=== PATIENT | female | born 2000 | race Caucasian/White ===

== ENCOUNTER 2019-02-13 11:08 | Emergency (ER) | payer OTHER ==
[2019-02-13 11:22] VITALS: BP 118/58
--- NOTE | 2019-02-13 12:14 | ER Document Report ---
HPI - HPI Patient complains to provider of: Right-sided back pain Time Seen by Provider: 02/13/19 11:38 Onset: Yesterday Onset/Duration: Sudden, Persistent Severity: Moderate Pain Level: 3 Context: Patient presents to the emergency department with complaints of right-sided neck pain. Patient reports she woke up yesterday morning with right-sided back pain. Reports it radiates down her right leg and up her right back. Pt denies pain with void. Denies urinary frequency. Denies history of kidney stones. She went to [facility] and was treated with muscle relaxer and naproxen. Patient reports she took medications and woke up feeling worse this morning. Denies urinary or bowel incontinence or retention. Denies trauma. Reports she just woke up. Reports she did not hurt her back at work. 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 Denies twisting her back. Reports she has family history of bulging disc. She denies numbness or tingling. Denies IV drug use or steroid use. Associated Symptoms: None Exacerbated by: Movement Relieved by: Denies Similar symptoms previously: Yes Recently seen / treated by doctor: Yes - CONSTITUTIONAL Constitutional: DENIES: Fever, Chills - EENT EENT: DENIES: Sore Throat, Ear Pain, Eye problems - NEURO Neurology: DENIES: Headache, Weakness, Vision blurred, Dizzinesss / Vertigo - CARDIOVASCULAR Cardiovascular: DENIES: Chest pain - RESPIRATORY Respiratory: DENIES: Trouble Breathing, Coughing - GASTROINTESTINAL Gastrointestinal: DENIES: Abdominal Pain, Black / Bloody Stools - URINARY Urinary: DENIES: Dysuria, Urgency, Frequency - REPRODUCTIVE Reproductive: DENIES: : - MUSCULOSKELETAL Musculoskeletal: DENIES: Extremity pain Past Medical History - General Information source: Patient Last Menstrual Period: just finished - Social History Smoking Status: Current Every Day Smoker Cigarette use (# per day): No Frequency of alcohol use: None Drug Abuse: None 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 IN LAST 30 DAYS: No - HEENT HEENT: Atraumatic, Normocephalic - NECK Neck: Normal Inspection, Supple. negative: Lymphadenopathy-Left, Lymphadenopathy-Right - RESPIRATORY Respiratory: Breath Sounds Normal, No Respiratory Distress - GI/ABDOMEN Gastrointestinal: Abdomen Soft, Abdomen Non-Tender - BACK Back: Normal Inspection - Complains of both low right-sided back pain. No v ertebral tenderness good distal movement sensation no erythema no swelling no warmth no weakness - MUSCULOSKELETAL/EXTREMETIES Musculoskeletal/Extremeties: [place] FROM - NEURO Level of Consciousness: Awake, Alert, Appropriate Motor/Sensory: No Motor Deficit - DERM Integumentary: Warm, Dry Adult Front & Back Diagram: 1 - Patient reports area tender to palpate Course - Re-evaluation Re-evalutation: 02/13/19 14:04 Pt denies vertebral tenderness, appears to be muscular. She was instructed to continue to take her medications that [place] She was also instructed follow-up with primary care provider within 1 week. She verbalized understanding to all instructions. Low suspicion for any meningitis, fracture, expanding/ruptured AAA, cauda equina syndrome, epidural mass lesion/abscess, herniated disc causing severe spinal stenosis, or other systemic infection at this time. Patient is aware that this condition can change from initial presentation and that she needs monitor symptoms closely for any acute changes. Dictation of this chart was performed using voice recognition software; therefore, there may be some unintended grammatical errors. - Vital Signs Vital signs: Temp Pulse Resp BP Pulse Ox 99.6 F 69 16 118/58 L 99 02/13/19 11:21 02/13/19 11:21 02/13/19 11:21 02/13/19 11:21 02/13/19 11:21 Discharge - Discharge Clinical Impression: right side low back pain Condition: Stable Disposition: HOME, SELF-CARE Instructions: Ice Packs ([facility]), Low Back Pain ([facility]) Additional Instructions: *You have been evaluated for right side low back pain *Take medication as prescribed *Rest/Ice packs as directed *Follow up with a primary care provider within one week for recheck *Return to ED for worsening condition, changes, needs
== END 2019-02-13 12:15 | disposition home or self-care (01) ==
LOC: ER 11:08
DX: M54.5 Low back pain (principal); M54.2 Cervicalgia; F17.200 Nicotine dependence, unspecified, uncomplicated
CPT/HCPCS: 99283

== ENCOUNTER 2019-02-15 19:21 | Inpatient (IN) | payer OTHER ==
[2019-02-15] MEDS ORDERED: NORMAL SALINE 1000 ML 1,000 ML IV ONE (19:48)
[2019-02-15 20:16] LABS: HEMATOCRIT 37.2 % (36.0-47.0); HEMOGLOBIN 12.4 g/dL (12.0-15.5); MEAN CORPUSCULAR HEMOGLOBIN 27.5 pg (27.0-33.4); MEAN CORPUSCULAR HGB CONC 33.3 g/dL (32.0-36.0); MEAN CORPUSCULAR VOLUME 83 fl (80-97); PLATELET COUNT 192 10^3/uL (150-450); RED BLOOD COUNT 4.51 10^6/uL (3.72-5.28); RED CELL DISTRIBUTION WIDTH 13.6 % (11.5-14.0); WHITE BLOOD COUNT 28.8 10^3/uL (4.0-10.5)
--- NOTE | 2019-02-15 20:22 | ER Document Report ---
Entered by NATASHA BUSTAMANTE SCRIBE [birth year] Acting as scribe for:ZHENG BEE MD ED General - General Chief Complaint: Back Pain Stated Complaint: RIGHT FLANK PAIN Time Seen by Provider: 02/15/19 19:31 Notes: Patient is a 18-year-old female arriving via EMS presenting to the emergency department complaining of back pain. Patient states that she woke up this morning at about 730 due to severe lower back pain. Patient states that she woke up on 02/10 and she was experiencing the same severe lower back pain, that woke her up from her sleep. Patient states that she has also been experiencing severe rib pain. Patient states that throughout the day on the it was intermittent, but that it got constant that night. Patient states that she went to [facility] on 02/11 when the pain stayed constant. Patient states that she was given the Naprosyn and Robaxin, and that she had a urine test done. Patient states that the pain radiates down her butt and into her thighs bilaterally. Patient denies saying anything exacerbates that, or having any abdominal pain. Patient states that her last menstrual period was on 02/09. Discovered to be around she EMS gave the patient 8 mg of Zofran, and 120 mg of fentanyl in route to the emergency department. TRAVEL OUTSIDE OF THE [place] IN LAST 30 DAYS: No - Related Data Allergies/Adverse Reactions: morphine Adverse Reaction (Verified 02/15/19 20:57) Past Medical History - General Information source: Patient - Social History Smoking Status: Never Smoker Cigarette use (# per day): No Chew tobacco use (# tins/day): No Frequency of alcohol use: None Drug Abuse: None Family History: Other - Bulging disc Review of Systems - Review of Systems Constitutional: No symptoms reported EENT: No symptoms reported Cardiovascular: No symptoms reported Respiratory: No symptoms reported Gastrointestinal: No symptoms reported. denies: Abdominal pain Genitourinary: See HPI, Flank pain Female Genitourinary: No symptoms reported Musculoskeletal: See HPI, Back pain Skin: No symptoms reported Hematologic/Lymphatic: No symptoms reported Neurological/Psychological: No symptoms reported -: Yes All other systems reviewed and negative Physical Exam - Vital signs Vitals: Temp 99.2 F 02/15/19 19:24 - Notes Notes: Physical Exam: General: Alert, appears well. HEENT: Normocephalic. Atraumatic. PERRL. Extraocular movements intact. Oropharynx clear. Neck: CVA percussion tenderness. Supple. Respiratory: No respiratory distress. Clear and equal breath sounds bilaterally. Cardiovascular: Regular rate and rhythm. Abdominal: Right lower quadrant mildly tender to palpation. Right upper quadra nt tenderness to palpation. Right tenderness to palpation. Right anterior ribs tender to palpation no distension. Normal Bowel Sounds. Back: Right lumbar tenderness to palpation bilaterally. Right flank musculature tenderness to palpation. No deformity or step off. Extremities: Moves all four extremities. Upper extremities: Normal inspection. Normal ROM. Lower extremities: Normal inspection. No edema. Normal ROM. Neurological: Normal cognition. AAOx4. Normal speech. Psychological: Normal affect. Normal Mood. Skin: Warm. Dry. Normal color. Course - Vital Signs Vital signs: Temp Pulse Resp BP Pulse Ox 99.2 F 21 95/62 L 100 02/15/19 19:24 02/15/19 21:10 02/15/19 21:10 02/15/19 21:10 - Laboratory Result Diagrams: 02/15/19 19:42 02/15/19 19:42 Laboratory results interpreted by me: 02/15/19 02/15/19 02/15/19 19:42 19:42 19:42 WBC 28.8 H Band Neutrophils % 14 H Lymphocytes % (Manual) 8 L Abs Neuts (Manual) 24.2 H Abs Monocytes (Manual) 2.3 H ESR Sodium 135.7 L Potassium 3.4 L Lactic Acid 3.1 H Direct Bilirubin 0.5 H C-Reactive Protein Urine Protein Urine Blood Urine Nitrite Urine Bilirubin Urine Urobilinogen Ur Leukocyte Esterase 02/15/19 02/15/19 02/15/19 19:42 19:42 20:24 WBC Band Neutrophils % Lymphocytes % (Manual) Abs Neuts (Manual) Abs Monocytes (Manual) ESR 48 H Sodium Potassium Lactic Acid Direct Bilirubin C-Reactive Protein 262.7 H Urine Protein 100 H Urine Blood SMALL H Urine Nitrite POSITIVE H Urine Bilirubin MODERATE H Urine Urobilinogen 4.0 H Ur Leukocyte Esterase MODERATE H - Diagnostic Test Radiology reviewed: Image reviewed, Reports reviewed - CT scan abdomen pelvis without contrast shows perinephric stranding and periureteral stranding of the right kidney. There are no stones and there is no obstruction. - Consults Dr. Miller Time consulted: 21:32 Consulted provider: will come to ER Discharge - Discharge Clinical Impression: Pyelonephritis of right kidney Leukocytosis Qualifiers: Leukocytosis type: bandemia Qualified Code(s): D72.825 - Bandemia Sepsis Qualifiers: Sepsis type: sepsis due to unspecified organism Qualified Code(s): A41.9 - Sepsis, unspecified organism Condition: Good Disposition: ADMITTED INPATIENT Admitting Provider: Paul (Hospitalist) Unit Admitted: Telemetry Scribe Attestation: 02/15/19 22:57 I personally performed the services described in the documentation, reviewed and edited the documentation which was dictated to the scribe in my presence, and it accurately records my words and actions. I personally performed the services described in the documentation, reviewed and edited the documentation which was dictated to the scribe in my presence, and it accurately records my words and actions.
[2019-02-15] MEDS ORDERED: KETOROLAC TROMETHAMINE INJ/PF 30 MG/1 ML SDV IV ONE (20:29)
[2019-02-15 20:38] LABS: ABSOLUTE LYMPHOCYTES# (MANUAL) 2.3 10^3/uL (0.5-4.7); ABSOLUTE MONOCYTES # (MANUAL) 2.3 10^3/uL (0.1-1.4); BASOPHILS % (MANUAL) 0 % (0-2); EOSINOPHILS % (MANUAL) 0 % (0-6); LYMPHOCYTES % (MANUAL) 8 % (13-45); MONOCYTES % (MANUAL) 8 % (3-13); SEGMENTED NEUTROPHILS % (MAN) 70 % (42-78); TOTAL CELLS COUNTED 100
[2019-02-15 20:39] LABS: ALANINE AMINOTRANSFERASE 21 U/L (5-35); ALBUMIN 3.7 g/dL (3.7-5.6); ALKALINE PHOSPHATASE 107 U/L (50-135); ANION GAP 13 (5-19); ASPARTATE AMINO TRANSFERASE 22 U/L (5-30); BILIRUBIN,DIRECT 0.5 mg/dL (0.0-0.4); BILIRUBIN,TOTAL 0.9 mg/dL (0.2-1.3); BLOOD UREA NITROGEN 13 mg/dL (7-20); CALCIUM 9.1 mg/dL (8.4-10.2); CARBON DIOXIDE 22 mmol/L (22-30); CHLORIDE 101 mmol/L (98-107); GLUCOSE 110 mg/dL (75-110); PLATELET COMMENT ADEQUATE; POTASSIUM 3.4 mmol/L (3.6-5.0); SODIUM 135.7 mmol/L (137-145); TOTAL PROTEIN 6.6 g/dL (6.3-8.2); TOXIC GRANULATION SLIGHT; TOXIC VACUOLATION PRESENT
[2019-02-15 20:40] LABS: BAND NEUTROPHILS % (MANUAL) 14 % (3-5)
[2019-02-15 20:58] LABS: APPEARANCE,URINE CLOUDY; BILIRUBIN,URINE MODERATE (NEGATIVE); COLOR,URINE AMBER; GLUCOSE, URINE NEGATIVE (NEGATIVE); KETONES,URINE NEGATIVE (NEGATIVE); LEUKOCYTE ESTERASE,URINE MODERATE (NEGATIVE); NITRITE,URINE POSITIVE (NEGATIVE); PROTEIN,URINE 100 mg/dL (NEGATIVE); URINE SPECIFIC GRAVITY 1.025
[2019-02-15] MEDS ORDERED: LEVOFLOXACIN 750 MG/D5W RTU 750 MG/150 ML RTUPB IV ONE (21:10)
[2019-02-15] MEDS ORDERED: RINGERS SOLUTION,LACTATED 1,000 ML IV ONE (21:11)
[2019-02-15 21:32] LABS: C-REACTIVE PROTEIN 262.7 mg/L (<10.0)
--- NOTE | 2019-02-15 22:15 | RADIOLOGY REPORT (SQ) ---
CT ABDOMEN PELVIS WITHOUT IV CONTRAST EXAM DATE: 02/15/2019 9:15 PM CDT HISTORY: Right flank pain. Hematuria. COMPARISON: None. TECHNIQUE: CT scan of the abdomen and pelvis was performed without IV contrast. This exam was performed according to our departmental dose-optimization program, which includes automated exposure control, adjustment of the mA and/or kV according to patient size and/or use of iterative reconstruction technique. FINDINGS: The lung bases are clear. No pleural or pericardial effusions. There is no hiatal hernia. The liver, main, pancreas, gallbladder, and adrenal glands are normal. No hydronephrosis or urinary stones are seen. There is mild right perinephric and periureteric stranding. Limited evaluation for pyelonephritis without IV contrast. Query small left ovarian cyst. The appendix is not well visualized. The proximal colon is fluid-filled suggesting a diarrheal illness. No evidence of diverticulitis or small bowel obstruction. No intraperitoneal free fluid or free air is seen. The aorta is normal caliber. No acute bony findings are seen. No pathologic body wall hernia is seen. IMPRESSION: 1. Limited evaluation for pyelonephritis without IV contrast. Mild right perinephric and periureteric stranding. Correlate with urinalysis. 2. No hydronephrosis or urinary stones. 3. Findings possibly representing a diarrheal illness.
[2019-02-15] MEDS ORDERED: MAG HYDROX/AL HYDROX/SIMETH SUSP 30 ML UDCUP PO PRN (22:17)
[2019-02-15] MEDS: NORMAL SALINE 1000 ML 1,000 ML IV PRN (23:20)
[2019-02-16] MEDS ORDERED: DEXTROSE 5%-WATER 250 ML with NOREPINEPHRINE BITARTRATE 4 MG IV PRN ×2 (01:40)
[2019-02-16] MEDS ORDERED: VANCOMYCIN HCL 0 MG in DEXTROSE 5%-WATER 250 ML IV NR (01:45)
[2019-02-16] MEDS ORDERED: VANCOMYCIN HCL INJ 1000 MG VIAL IV PRN (02:03)
[2019-02-16] MEDS ORDERED: NOREPINEPHRINE BITARTRATE INJ/PF 4 MG/4 ML SDV IV ONE (02:03)
[2019-02-16] MEDS ORDERED: VANCOMYCIN HCL 1,500 MG in DEXTROSE 5%-WATER 250 ML IV ONE (02:30)
[2019-02-16] MEDS: POTASSI CL 20 MEQ/50 ML RIDER 20 MEQ/50 ML RTUPB IV SCH ×2 (02:57→04:40)
[2019-02-16] MEDS: NORMAL SALINE 1000 ML 1,000 ML IV PRN ×3 (02:57→23:41)
[2019-02-16 04:04] LABS: HEMATOCRIT 33.2 % (36.0-47.0); MEAN CORPUSCULAR HEMOGLOBIN 27.8 pg (27.0-33.4); MEAN CORPUSCULAR HGB CONC 33.2 g/dL (32.0-36.0); MEAN CORPUSCULAR VOLUME 84 fl (80-97); PLATELET COUNT 165 10^3/uL (150-450); RED BLOOD COUNT 3.97 10^6/uL (3.72-5.28); RED CELL DISTRIBUTION WIDTH 13.7 % (11.5-14.0); WHITE BLOOD COUNT 22.8 10^3/uL (4.0-10.5)
[2019-02-16 04:20] LABS: ANION GAP 9 (5-19); BLOOD UREA NITROGEN 12 mg/dL (7-20); CALCIUM 7.6 mg/dL (8.4-10.2); CARBON DIOXIDE 21 mmol/L (22-30); CHLORIDE 108 mmol/L (98-107); GLUCOSE 142 mg/dL (75-110); POTASSIUM 3.6 mmol/L (3.6-5.0); SODIUM 137.8 mmol/L (137-145)
[2019-02-16 04:28] LABS: ABSOLUTE LYMPHOCYTES# (MANUAL) 1.6 10^3/uL (0.5-4.7); ABSOLUTE MONOCYTES # (MANUAL) 0.2 10^3/uL (0.1-1.4); BAND NEUTROPHILS % (MANUAL) 10 % (3-5); BASOPHILS % (MANUAL) 0 % (0-2); EOSINOPHILS % (MANUAL) 0 % (0-6); LYMPHOCYTES % (MANUAL) 7 % (13-45); MONOCYTES % (MANUAL) 1 % (3-13); SEGMENTED NEUTROPHILS % (MAN) 82 % (42-78); TOTAL CELLS COUNTED 100
[2019-02-16 04:29] LABS: RBC MORPHOLOGY COMMENT NORMO-CYTIC/CHROMIC
[2019-02-16 04:30] LABS: PLATELET COMMENT ADEQUATE
[2019-02-16] MEDS: KETOROLAC TROMETHAMINE INJ/PF 30 MG/1 ML SDV IV PRN ×3 (04:42→17:24)
[2019-02-16] MEDS: HEPARIN SOD (PORCINE) 5,000 UNIT/ML 1 ML SYRINGE SUBCUT SCH ×2 (05:35→18:32)
--- NOTE | 2019-02-16 05:41 | PDOC H&P ---
History of Present Illness Admission Date/PCP: 02/15/19 23:01 Patient complains of: Right-sided back pain History of Present Illness: NATE SALCEDO is a 18 year old female without past medical history who presents with 7 days of back pain prompting to seek evaluation at [facility]. She suggest a history consistent of muscular strain and is diagnosed with such but pain persist developing fever prompting reevaluation. She is found to have leukocytosis, bandemia, right-sided pyelonephritis without abscess or hydronephrosis. She denies previous history of recent antibiotic use. She started on empiric antibiotics and referred to the hospitalist for admission. She promptly develops severe sepsis with hypotension partially responsive to 4 L of saline, requiring levofed Past Medical History Medical History: None Past Surgical History Past Surgical History: Reports: None Social History Information Source: Patient Lives with: Spouse/Significant other Smoking Status: Never Smoker Frequency of Alcohol Use: None Hx Recreational Drug Use: No Hx Prescription Drug Abuse: No - Advance Directive Resuscitation Status: Full Code Family History Family History: Other - Bulging disc Parental Family History Reviewed: Yes Children Family History Reviewed: Yes Sibling(s) Family History Reviewed.: Yes Medication/Allergy Allergies/Adverse Reactions: morphine Adverse Reaction (Verified 02/15/19 20:57) Review of Systems Constitutional: ABSENT: chills, fever(s), headache(s), weight gain, weight loss Eyes: ABSENT: visual disturbances Ears: ABSENT: hearing changes Cardiovascular: ABSENT: chest pain, dyspnea on exertion, edema, orthropnea, palpitations Respiratory: ABSENT: cough, hemoptysis Gastrointestinal: ABSENT: abdominal pain, constipation, diarrhea, hematemesis, hematochezia, nausea, vomiting Genitourinary: ABSENT: dysuria, hematuria Musculoskeletal: ABSENT: joint swelling Integumentary: ABSENT: rash, wounds Neurological: ABSENT: abnormal gait, abnormal speech, confusion, dizziness, focal weakness, syncope Psychiatric: ABSENT: anxiety, depression, homidical ideation, suicidal ideation Endocrine: ABSENT: cold intolerance, heat intolerance, polydipsia, polyuria Hematologic/Lymphatic: ABSENT: easy bleeding, easy bruising Physical Exam Vital Signs: Temp Pulse Resp BP Pulse Ox 98.3 F 88 20 97/67 L 100 02/16/19 03:40 02/16/19 02:58 02/16/19 03:04 02/16/19 03:04 02/16/19 03:04 Intake & Output 02/14/19 02/15/19 02/16/19 11:59 11:59 11:59 Intake Total 3215 Output Total 500 Balance 2715 Weight 79.6 kg General appearance: PRESENT: cooperative, obese, severe distress, well- developed, well-nourished Head exam: PRESENT: atraumatic, normocephalic Eye exam: PRESENT: conjunctiva pink, EOMI, PERRLA. ABSENT: scleral icterus Ear exam: PRESENT: normal external ear exam Mouth exam: PRESENT: dry mucosa. ABSENT: laceration, moist Neck exam: ABSENT: carotid bruit, JVD, lymphadenopathy, thyromegaly Respiratory exam: PRESENT: accessory muscle use, clear to auscultation brice, symmetrical, tachypnea Cardiovascular exam: PRESENT: +S1, +S2, systolic murmur, tachycardia Pulses: PRESENT: normal dorsalis pedis pul Vascular exam: PRESENT: normal capillary refill GI/Abdominal exam: PRESENT: hypoactive bowel sounds, normal bowel sounds, soft, tenderness - Right-sided flank pain to percussion. ABSENT: distended, guarding, mass, organolmegaly, rebound Rectal exam: PRESENT: deferred Extremities exam: PRESENT: full ROM. ABSENT: calf tenderness, clubbing, pedal edema Neurological exam: PRESENT: alert, awake, oriented to person, oriented to place, oriented to time, oriented to situation, CN II-XII grossly intact. ABSENT: motor sensory deficit Psychiatric exam: PRESENT: appropriate affect, normal mood. ABSENT: homicidal ideation, suicidal ideation Skin exam: PRESENT: dry, intact, warm. ABSENT: cyanosis, rash Results Laboratory Results: 02/16/19 03:58 02/16/19 03:58 02/15/19 02/15/19 02/15/19 19:42 19:42 19:42 WBC 28.8 H RBC 4.51 Hgb 12.4 Hct 37.2 MCV 83 MCH 27.5 MCHC 33.3 RDW 13.6 Plt Count 192 Seg Neutrophils % Not Reportable Lymphocytes % Not Reportable Monocytes % Not Reportable Eosinophils % Not Reportable Basophils % Not Reportable Absolute Neutrophils Not Reportable Absolute Lymphocytes Not Reportable Absolute Monocytes Not Reportable Absolute Eosinophils Not Reportable Absolute Basophils Not Reportable Sodium Potassium Chloride Carbon Dioxide Anion Gap BUN Creatinine Est GFR ( Amer) Est GFR (Non-Af Amer) Glucose Lactic Acid 3.1 H Calcium Magnesium Total Bilirubin AST ALT Alkaline Phosphatase C-Reactive Protein Total Protein Albumin Serum HCG, Qual NEGATIVE Urine Color Urine Appearance Urine pH Ur Specific [place] Urine Protein Urine Glucose (UA) Urine Ketones Urine Blood Urine Nitrite Ur Leukocyte Esterase Urine WBC (Auto) Urine RBC (Auto) 02/15/19 02/15/19 02/15/19 19:42 19:42 19:42 WBC RBC Hgb Hct MCV MCH MCHC RDW Plt Count Seg Neutrophils % Lymphocytes % Monocytes % Eosinophils % Basophils % Absolute Neutrophils Absolute Lymphocytes Absolute Monocytes Absolute Eosinophils Absolute Basophils Sodium 135.7 L Potassium 3.4 L Chloride 101 Carbon Dioxide 22 Anion Gap 13 BUN 13 Creatinine 1.14 Est GFR ( Amer) > 60 Est GFR (Non-Af Amer) > 60 Glucose 110 Lactic Acid Calcium 9.1 Magnesium 1.4 L Total Bilirubin 0.9 AST 22 ALT 21 Alkaline Phosphatase 107 C-Reactive Protein 262.7 H Total Protein 6.6 Albumin 3.7 Serum HCG, Qual Urine Color Urine Appearance Urine pH Ur Specific [place] Urine Protein Urine Glucose (UA) Urine Ketones Urine Blood Urine Nitrite Ur Leukocyte Esterase Urine WBC (Auto) Urine RBC (Auto) 02/15/19 02/15/19 02/16/19 20:24 23:59 03:58 WBC 22.8 H RBC 3.97 Hgb 11.0 L Hct 33.2 L MCV 84 MCH 27.8 MCHC 33.2 RDW 13.7 Plt Count 165 Seg Neutrophils % Not Reportable Lymphocytes % Not Reportable Monocytes % Not Reportable Eosinophils % Not Reportable Basophils % Not Reportable Absolute Neutrophils Not Reportable Absolute Lymphocytes Not Reportable Absolute Monocytes Not Reportable Absolute Eosinophils Not Reportable Absolute Basophils Not Reportable Sodium Potassium Chloride Carbon Dioxide Anion Gap BUN Creatinine Est GFR ( Amer) Est GFR (Non-Af Amer) Glucose Lactic Acid 1.4 Calcium Magnesium Total Bilirubin AST ALT Alkaline Phosphatase C-Reactive Protein Total Protein Albumin Serum HCG, Qual Urine Color RYDER Urine Appearance CLOUDY Urine pH 5.0 Ur Specific [place] 1.025 Urine Protein 100 H Urine Glucose (UA) NEGATIVE Urine Ketones NEGATIVE Urine Blood SMALL H Urine Nitrite POSITIVE H Ur Leukocyte Esterase MODERATE H Urine WBC (Auto) 164 Urine RBC (Auto) 15 02/16/19 03:58 WBC RBC Hgb Hct MCV MCH MCHC RDW Plt Count Seg Neutrophils % Lymphocytes % Monocytes % Eosinophils % Basophils % Absolute Neutrophils Absolute Lymphocytes Absolute Monocytes Absolute Eosinophils Absolute Basophils Sodium 137.8 Potassium 3.6 Chloride 108 H Carbon Dioxide 21 L Anion Gap 9 BUN 12 Creatinine 0.83 Est GFR ( Amer) > 60 Est GFR (Non-Af Amer) > 60 Glucose 142 H Lactic Acid Calcium 7.6 L Magnesium Total Bilirubin AST ALT Alkaline Phosphatase C-Reactive Protein Total Protein Albumin Serum HCG, Qual Urine Color Urine Appearance Urine pH Ur Specific [place] Urine Protein Urine Glucose (UA) Urine Ketones Urine Blood Urine Nitrite Ur Leukocyte Esterase Urine WBC (Auto) Urine RBC (Auto) Impressions: Abdomen/Pelvis CT 02/15/19 21:15 IMPRESSION: 1. Limited evaluation for pyelonephritis without IV contrast. Mild right perinephric and periureteric stranding. Correlate with urinalysis. 2. No hydronephrosis or urinary stones. 3. Findings possibly representing a diarrheal illness. Assessment and Plan - Diagnosis (1) Pyelonephritis of right kidney Is this a current diagnosis for this admission?: Yes Plan: Without abscess or obstruction, but severe sepsis, IV fluid challenge, Levophed, Rocephin and vancomycin initiated. Follow-up blood and urine culture (2) Sepsis Qualifiers: Sepsis type: sepsis due to unspecified organism Qualified Code(s): A41.9 - Sepsis, unspecified organism Is this a current diagnosis for this admission?: Yes Plan: Please see #1, follow-up lactic acid. - Time Time Spent with patient: 25-34 minutes - Inpatient Certification Medical Necessity: Need Close Monitoring Due to Risk of Patient Decompensation
[2019-02-16] MEDS ORDERED: LEVOFLOXACIN 750 MG/D5W RTU 750 MG/150 ML RTUPB IV SCH (10:00)
[2019-02-16] MEDS: PIPERACILLIN SODIUM/TAZOBACTAM 3.375 GM in NORMAL SALINE 100 ML IV SCH ×3 (11:21→23:40)
--- NOTE | 2019-02-16 12:02 | PDOC PROGRESS REPORT ---
Subjective Progress Note for:: 02/16/19 Subjective:: This is a 18 years old female patient with no significant past medical history presented with 1 week history of right-sided back pain associated with fever. Her blood work shows market leukocytosis of 28,000 with bandemia and lactic acidosis. On examination also patient found to be hypotensive, tachypneic and febrile. Her CT scan of the abdomen and pelvis shows perinephric and periureteric stranding of the right kidney which is compatible with pyelone phritis. Patient has been started on Zosyn. Running I seen patient resting in bed comfortably and she reports this her right-sided back pain is relatively improving. Reason For Visit: SEPSIS PYELONEPHRITIS Physical Exam Vital Signs: Temp Pulse Resp BP Pulse Ox 98.1 F 87 28 H 90/69 L 99 02/16/19 08:00 02/16/19 10:00 02/16/19 10:00 02/16/19 10:00 02/16/19 10:00 Intake & Output 02/15/19 02/16/19 02/17/19 06:59 06:59 06:59 Intake Total 4508 74 Output Total 700 0 Balance 3808 74 Weight 79.6 kg General appearance: PRESENT: no acute distress, well-developed, well-nourished Head exam: PRESENT: atraumatic Respiratory exam: PRESENT: clear to auscultation brice. ABSENT: rales, rhonchi, wheezes Cardiovascular exam: PRESENT: RRR. ABSENT: diastolic murmur, rubs, systolic murmur GI/Abdominal exam: PRESENT: normal bowel sounds, soft. ABSENT: distended, guarding, mass, organolmegaly, rebound, tenderness Neurological exam: PRESENT: alert, awake, oriented to person, oriented to place, oriented to time, oriented to situation Results Laboratory Results: 02/16/19 03:58 02/16/19 03:58 02/15/19 02/15/19 02/15/19 19:42 19:42 19:42 WBC 28.8 H RBC 4.51 Hgb 12.4 Hct 37.2 MCV 83 MCH 27.5 MCHC 33.3 RDW 13.6 Plt Count 192 Seg Neutrophils % Not Reportable Lymphocytes % Not Reportable Monocytes % Not Reportable Eosinophils % Not Reportable Basophils % Not Reportable Absolute Neutrophils Not Reportable Absolute Lymphocytes Not Reportable Absolute Monocytes Not Reportable Absolute Eosinophils Not Reportable Absolute Basophils Not Reportable Sodium Potassium Chloride Carbon Dioxide Anion Gap BUN Creatinine Est GFR ( Amer) Est GFR (Non-Af Amer) Glucose Lactic Acid 3.1 H Calcium Magnesium Total Bilirubin AST ALT Alkaline Phosphatase C-Reactive Protein Total Protein Albumin Serum HCG, Qual NEGATIVE Urine Color Urine Appearance Urine pH Ur Specific Brinklow Urine Protein Urine Glucose (UA) Urine Ketones Urine Blood Urine Nitrite Ur Leukocyte Esterase Urine WBC (Auto) Urine RBC (Auto) 02/15/19 02/15/19 02/15/19 19:42 19:42 19:42 WBC RBC Hgb Hct MCV MCH MCHC RDW Plt Count Seg Neutrophils % Lymphocytes % Monocytes % Eosinophils % Basophils % Absolute Neutrophils Absolute Lymphocytes Absolute Monocytes Absolute Eosinophils Absolute Basophils Sodium 135.7 L Potassium 3.4 L Chloride 101 Carbon Dioxide 22 Anion Gap 13 BUN 13 Creatinine 1.14 Est GFR ( Amer) > 60 Est GFR (Non-Af Amer) > 60 Glucose 110 Lactic Acid Calcium 9.1 Magnesium 1.4 L Total Bilirubin 0.9 AST 22 ALT 21 Alkaline Phosphatase 107 C-Reactive Protein 262.7 H Total Protein 6.6 Albumin 3.7 Serum HCG, Qual Urine Color Urine Appearance Urine pH Ur Specific Brinklow Urine Protein Urine Glucose (UA) Urine Ketones Urine Blood Urine Nitrite Ur Leukocyte Esterase Urine WBC (Auto) Urine RBC (Auto) 02/15/19 02/15/19 02/16/19 20:24 23:59 03:58 WBC 22.8 H RBC 3.97 Hgb 11.0 L Hct 33.2 L MCV 84 MCH 27.8 MCHC 33.2 RDW 13.7 Plt Count 165 Seg Neutrophils % Not Reportable Lymphocytes % Not Reportable Monocytes % Not Reportable Eosinophils % Not Reportable Basophils % Not Reportable Absolute Neutrophils Not Reportable Absolute Lymphocytes Not Reportable Absolute Monocytes Not Reportable Absolute Eosinophils Not Reportable Absolute Basophils Not Reportable Sodium Potassium Chloride Carbon Dioxide Anion Gap BUN Creatinine Est GFR ( Amer) Est GFR (Non-Af Amer) Glucose Lactic Acid 1.4 Calcium Magnesium Total Bilirubin AST ALT Alkaline Phosphatase C-Reactive Protein Total Protein Albumin Serum HCG, Qual Urine Color RYDER Urine Appearance CLOUDY Urine pH 5.0 Ur Specific Brinklow 1.025 Urine Protein 100 H Urine Glucose (UA) NEGATIVE Urine Ketones NEGATIVE Urine Blood SMALL H Urine Nitrite POSITIVE H Ur Leukocyte Esterase MODERATE H Urine WBC (Auto) 164 Urine RBC (Auto) 15 02/16/19 03:58 WBC RBC Hgb Hct MCV MCH MCHC RDW Plt Count Seg Neutrophils % Lymphocytes % Monocytes % Eosinophils % Basophils % Absolute Neutrophils Absolute Lymphocytes Absolute Monocytes Absolute Eosinophils Absolute Basophils Sodium 137.8 Potassium 3.6 Chloride 108 H Carbon Dioxide 21 L Anion Gap 9 BUN 12 Creatinine 0.83 Est GFR ( Amer) > 60 Est GFR (Non-Af Amer) > 60 Glucose 142 H Lactic Acid Calcium 7.6 L Magnesium Total Bilirubin AST ALT Alkaline Phosphatase C-Reactive Protein Total Protein Albumin Serum HCG, Qual Urine Color Urine Appearance Urine pH Ur Specific Brinklow Urine Protein Urine Glucose (UA) Urine Ketones Urine Blood Urine Nitrite Ur Leukocyte Esterase Urine WBC (Auto) Urine RBC (Auto) Impressions: Abdomen/Pelvis CT 02/15/19 21:15 IMPRESSION: 1. Limited evaluation for pyelonephritis without IV contrast. Mild right perinephric and periureteric stranding. Correlate with urinalysis. 2. No hydronephrosis or urinary stones. 3. Findings possibly representing a diarrheal illness. Assessment and Plan - Diagnosis (1) Severe sepsis Is this a current diagnosis for this admission?: Yes Plan: Sepsis of urinary tract origin. Sepsis evidenced by hypotension, leukocytosis, fever and tachypnea. Continue Zosyn. (2) Pyelonephritis of right kidney Is this a current diagnosis for this admission?: Yes Plan: Continue Zosyn and de-escalate based on her clinical response and culture results. (3) Leukocytosis Qualifiers: Leukocytosis type: bandemia Qualified Code(s): D72.825 - Bandemia Is this a current diagnosis for this admission?: Yes Plan: Due to #1. We will check her CBC in a.m.
--- NOTE | 2019-02-16 14:59 | RADIOLOGY REPORT (SQ) ---
EXAM DESCRIPTION: CTA CHEST COMPLETED DATE/TIME: 02/16/2019 2:42 pm REASON FOR STUDY: R/O PE COMPARISON: None. TECHNIQUE: CT scan of the chest performed using helical scanning technique with dynamic intravenous contrast injection. Images reviewed with lung, soft tissue and bone windows. Reconstructed coronal and sagittal MPR images reviewed. Additional 3 dimensional post-processing performed to develop Maximal Intensity Projection images (ME P). All images stored on PACS. All CT scanners at this facility use dose modulation, iterative reconstruction, and/or weight based d osing when appropriate to reduce radiation dose to as low as reasonably achievable (ALARA). [facility]: Dose Right [facility]: CareDose [facility]: Dose Right [facility]: Teradose 4D [facility]: EVS [employer] CONTRAST TYPE AND DOSE: contrast/concentration: Isovue 350.00 mg/ml; Total Contrast Delivered: 61.0 ml; Total Saline Delivered: 80.0 ml Contrast bolus adequate for pulmonary arteries and aorta. RENAL FUNCTION: BUN 13 creatinine 1.14 RADIATION DOSE: CT Rad equipment meets quality standard of care and radiation dose reduction techniq ues were employed. CTDIvol: 21.7 - 33.1 mGy. DLP: 784 mGy-cm. . LIMITATIONS: None. FINDINGS: LUNGS AND PLEURA: Mild dependent atelectasis in the lower lobes. AORTA AND GREAT VESSELS: No aneurysm. Contrast bolus not optimized for the aorta. HEART: No pericardial effusion. No significant coronary artery calcifications. PULMONARY ARTERIES: No emboli visualized in the main pulmonary arteries or the segmental branches. HILAR AND MEDIASTINAL STRUCTURES: No identified masses or abnormal nodes. HARDWARE: None in the chest. UPPER ABDOMEN: No significant findings. Limited exam. THYROID AND OTHER SOFT TISSUES: No masses. No adenopathy. BONES: No acute or significant finding. 3D MIPS: Confirm above findings. OTHER: No other significant finding. IMPRESSION: Mild dependent atelectasis. No evidence of pulmonary embolus. No aortic aneurysm or di ssection. COMMENT: Quality ID # [id number]: Final reports with documentation of one or more dose reduction techniques (e.g., Automated exposure control, adjustment of the mA and/or kV according to patient size, use of iterative reconstruction technique) TECHNICAL DOCUMENTATION: JOB ID: [id number] [employer]- All Rights Reserved Reading location - IP/workstation name: [email or web address]
[2019-02-16] MEDS ORDERED: LORAZEPAM INJ 2 MG/1 ML VIAL ONE ×2 (15:51→17:12)
[2019-02-16] MEDS ORDERED: LORAZEPAM INJ 2 MG/1 ML VIAL IV ONE ×2 (16:00→18:15)
[2019-02-16] MEDS: ACETAMINOPHEN 325 MG TABLET PO PRN (16:11)
[2019-02-16] MEDS ORDERED: IBUPROFEN 800 MG TABLET ONE (17:06)
[2019-02-16] MEDS: ENOXAPARIN SODIUM INJ 40 MG/0.4 ML DISP.SYRIN SUBCUT SCH (17:14)
[2019-02-16 18:00] LABS: INTERNATIONAL RATION (INR) 1.58
[2019-02-16] MEDS ORDERED: VANCOMYCIN HCL 1,000 MG in DEXTROSE 5%-WATER 250 ML IV SCH (18:00)
[2019-02-16 18:01] LABS: PARTIAL THROMBOPLASTIN TIME 44.7 SEC (23.5-35.8)
[2019-02-16] MEDS ORDERED: IBUPROFEN 800 MG TABLET PO ONE (18:15)
[2019-02-16] MEDS ORDERED: NORMAL SALINE 1000 ML 3,000 ML IV ONE (18:45)
[2019-02-16] MEDS ORDERED: CALCIUM GLUCONATE 2,222 MG in DEXTROSE 5%-WATER 100 ML IV ONE (18:56)
[2019-02-16] MEDS ORDERED: CALCIUM GLUCONATE 1000 MG/10 ML INJ IV ONE ×3 (19:09→19:18)
[2019-02-17] MEDS: IPRATROPIUM/ALBUTEROL 0.5-2.5 MG/3 ML AMPUL NEB PRN (03:13)
[2019-02-17 04:11] LABS: HEMATOCRIT 30.5 % (36.0-47.0); HEMOGLOBIN 10.1 g/dL (12.0-15.5); MEAN CORPUSCULAR HEMOGLOBIN 27.8 pg (27.0-33.4); MEAN CORPUSCULAR HGB CONC 33.2 g/dL (32.0-36.0); MEAN CORPUSCULAR VOLUME 84 fl (80-97); PLATELET COUNT 144 10^3/uL (150-450); RED BLOOD COUNT 3.64 10^6/uL (3.72-5.28); RED CELL DISTRIBUTION WIDTH 13.8 % (11.5-14.0); WHITE BLOOD COUNT 16.4 10^3/uL (4.0-10.5)
[2019-02-17 04:30] LABS: ANION GAP 5 (5-19); BLOOD UREA NITROGEN 8 mg/dL (7-20); CARBON DIOXIDE 18 mmol/L (22-30); CHLORIDE 116 mmol/L (98-107); POTASSIUM 3.4 mmol/L (3.6-5.0); SODIUM 139.3 mmol/L (137-145)
[2019-02-17 04:31] LABS: GLUCOSE 94 mg/dL (75-110)
[2019-02-17] MEDS: NORMAL SALINE 1000 ML 1,000 ML IV PRN (05:27)
[2019-02-17] MEDS: PIPERACILLIN SODIUM/TAZOBACTAM 3.375 GM in NORMAL SALINE 100 ML IV SCH ×3 (05:27→17:15)
--- NOTE | 2019-02-17 11:14 | PDOC PROGRESS REPORT ---
Subjective Progress Note for:: 02/17/19 Subjective:: This is a 18 years old female patient with no significant past medical history presented with 1 week history of right-sided back pain associated with fever. Her blood work shows market leukocytosis of 28,000 with bandemia and lactic acidosis. On examination also patient found to be hypotensive, tachypneic and febrile. Her CT scan of the abdomen and pelvis shows perinephric and periureteric stranding of the right kidney which is compatible with pyelone phritis. Patient has been started on Zosyn. Running I seen patient resting in bed comfortably and she reports this her right-sided back pain is relatively improving. 02/17/2019: Yesterday during my rounding patient was in stable condition,. She request for discharge. In the afternoon her condition was complicated patient become toxics with fever of 103.4, tachypneic ranging between 28-36, hypotensive and tachycardic greater than 140. She is bolused with 3 L of normal saline and maintained at 200 mm/h. Her fever subsided after she was given Motrin 800 mg p.o. stat. This morning I reevaluated the patient she is more awake alert conversant. Her vital signs are stable. Her blood work shows her white cell count is trending down, at admission it was 28.8 date is 16.4. Her urine cultu re is positive for gram-negative rods most probably E. coli. Patient has been on Zosyn so we de-escalate based on her culture results and clinical response. Reason For Visit: SEPSIS PYELONEPHRITIS Physical Exam Vital Signs: Temp Pulse Resp BP Pulse Ox 98.2 F 90 27 H 119/77 96 02/17/19 10:00 02/17/19 10:00 02/17/19 10:00 02/17/19 10:00 02/17/19 10:00 Intake & Output 02/16/19 02/17/19 02/18/19 06:59 06:59 06:59 Intake Total 4508 5424 Output Total 700 1100 1200 Balance 3808 4324 -1200 Weight 79.6 kg 79.6 kg General appearance: PRESENT: no acute distress Head exam: PRESENT: atraumatic Eye exam: PRESENT: conjunctiva pink Mouth exam: PRESENT: moist Neck exam: ABSENT: carotid bruit, JVD, lymphadenopathy, thyromegaly Respiratory exam: PRESENT: clear to auscultation brice. ABSENT: rales, rhonchi, wheezes Cardiovascular exam: PRESENT: RRR. ABSENT: diastolic murmur, rubs, systolic mur mur GI/Abdominal exam: PRESENT: normal bowel sounds, soft. ABSENT: distended, guarding, mass, organolmegaly, rebound, tenderness Neurological exam: PRESENT: alert, awake, oriented to person, oriented to place, oriented to time, oriented to situation Results Laboratory Results: 02/17/19 03:58 02/17/19 03:58 02/17/19 02/17/19 03:58 03:58 WBC 16.4 H RBC 3.64 L Hgb 10.1 L Hct 30.5 L MCV 84 MCH 27.8 MCHC 33.2 RDW 13.8 Plt Count 144 L Sodium 139.3 Potassium 3.4 L Chloride 116 H Carbon Dioxide 18 L Anion Gap 5 BUN 8 Creatinine 0.70 Est GFR ( Amer) > 60 Est GFR (Non-Af Amer) > 60 Glucose 94 Calcium 8.0 L Impressions: Abdomen/Pelvis CT 02/15/19 21:15 IMPRESSION: 1. Limited evaluation for pyelonephritis without IV contrast. Mild right perinephric and periureteric stranding. Correlate with urinalysis. 2. No hydronephrosis or urinary stones. 3. Findings possibly representing a diarrheal illness. Chest/Abdomen CTA 02/16/19 00:00 IMPRESSION: Mild dependent atelectasis. No evidence of pulmonary embolus. No aortic aneurysm or dissection. Assessment and Plan - Diagnosis (1) Severe sepsis Is this a current diagnosis for this admission?: Yes Plan: Improving (2) Pyelonephritis of right kidney Is this a current diagnosis for this admission?: Yes Plan: Urine culture positive for gram-negative rods most probably due to E. coli. Continue Zosyn. (3) Leukocytosis Qualifiers: Leukocytosis type: bandemia Qualified Code(s): D72.825 - Bandemia Is this a current diagnosis for this admission?: Yes Plan: Trending down
[2019-02-17] MEDS: ENOXAPARIN SODIUM INJ 40 MG/0.4 ML DISP.SYRIN SUBCUT SCH (12:48)
[2019-02-17] MEDS: KETOROLAC TROMETHAMINE INJ/PF 30 MG/1 ML SDV IV PRN (12:49)
[2019-02-17] MEDS ORDERED: LORAZEPAM 1 MG TABLET ONE (12:54)
[2019-02-17 13:10] LABS: PATH REVIEW PATHOLOGIST REVIEWED
[2019-02-17] MEDS ORDERED: LORAZEPAM 1 MG TABLET PO ONE (13:30)
[2019-02-17 19:03] LABS: ARTERIAL BLOOD H2CO3 0.81 mmol/L (1.05-1.35); ARTERIAL BLOOD HCO3 17.1 mmol/L (20-24); ARTERIAL BLOOD O2 SATURATION 85.5 % (94-98); ARTERIAL BLOOD PCO2 26.8 mmHg (35-45); ARTERIAL BLOOD PH 7.42 (7.35-7.45); ARTERIAL BLOOD TOTAL CO2 17.9 mmol/L (21-25)
[2019-02-17 19:05] LABS: ARTERIAL BLOOD FIO2 3L
[2019-02-17] MEDS: ACETAMINOPHEN 325 MG TABLET PO PRN (19:05)
[2019-02-17] MEDS ORDERED: IBUPROFEN 800 MG TABLET ONE (19:07)
--- NOTE | 2019-02-17 21:44 | RADIOLOGY REPORT (SQ) ---
EXAM DESCRIPTION: [facility]Lex: CT ABDOMEN PELVIS WITH IV CONTRAST CLINICAL HISTORY: 18 years Female; Rule perinephric abscess TECHNIQUE: CT of the abdomen and pelvis using intravenous contrast. All CT scans at this facility use dose modulation, iterative reconstruction, and/or weight based dosing when appropriate to reduce radiation dose to as low as reasonably achievable. COMPARISON: 02/15/2019 FINDINGS: Bilateral pleural effusions have developed, 2 cm on the right and 1 cm on the left. Atelectasis/infiltrates in both lower lobes are new since prior exam. Abdomen: Liver:No focal lesions. No intrahepatic ductal distention. Gallbladder:Nondistended Pancreas:Within normal limits Spleen:Within normal limits Right kidney: Slightly heterogeneous enhancement in the upper pole, typical for focal pyelonephritis. Persistent mild perinephric edema. No hydronephrosis. No discrete fluid collection. Left kidney:No hydronephrosis. No focal lesion. Adrenal glands:Within normal limits Vascular structures:Within normal limits Pelvis: Small bowel:No significant distention. Appendix:Within normal limits Colon:No distention or acute pericolonic edema. Small amount of free fluid in the dependent portion of the pelvis, increased since prior exam. No free air. Bones: No acute bone findings. Bladder: Unremarkable. No pelvic mass or adenopathy. IMPRESSION: 1. Persistent mild right perinephric edema with abnormal enhancement in the upper pole typical for pyelonephritis. No discrete abscess. 2. New bilateral pleural effusions with partially visualized lower lobe infiltrates 3. Small amount of free fluid in the pelvis, new since 02/15/2019
[2019-02-17] MEDS: IPRATROPIUM/ALBUTEROL 0.5-2.5 MG/3 ML AMPUL NEB SCH (22:48)
[2019-02-18] MEDS ORDERED: METOPROLOL TARTRATE PF/INJ 5 MG/5 ML SDV IV ONE ×2 (00:28→01:00)
[2019-02-18] MEDS ORDERED: ENOXAPARIN SODIUM INJ 40 MG/0.4 ML DISP.SYRIN SUBCUT ONE (00:53)
[2019-02-18 01:15] LABS: ANION GAP 6 (5-19); BLOOD UREA NITROGEN 7 mg/dL (7-20); CARBON DIOXIDE 20 mmol/L (22-30); CHLORIDE 113 mmol/L (98-107); GLUCOSE 88 mg/dL (75-110); POTASSIUM 3.1 mmol/L (3.6-5.0); SODIUM 139.2 mmol/L (137-145)
[2019-02-18] MEDS: PIPERACILLIN SODIUM/TAZOBACTAM 3.375 GM in NORMAL SALINE 100 ML IV SCH ×5 (01:32→23:19)
[2019-02-18] MEDS ORDERED: POTASSIUM CHLORIDE 10 MEQ CAPSULE.ER PO ONE (03:00)
[2019-02-18] MEDS: POTASSIUM CHLORIDE 20 MEQ/50 ML RTU IV SCH ×2 (03:27→07:36)
[2019-02-18 05:24] LABS: ABSOLUTE EOSINOPHILS # (AUTO) 0.1 10^3/uL (0.0-0.6); ABSOLUTE LYMPHOCYTES (AUTO) 1.9 10^3/uL (0.5-4.7); ABSOLUTE NEUT (AUTO) 9.8 10^3/uL (1.7-8.2); BASOPHILS % (AUTO) 0.2 % (0-2); EOSINOPHILS % (AUTO) 0.7 % (0-6); HEMATOCRIT 28.2 % (36.0-47.0); HEMOGLOBIN 9.5 g/dL (12.0-15.5); LYMPHOCYTES % (AUTO) 14.9 % (13-45); MEAN CORPUSCULAR HEMOGLOBIN 28.1 pg (27.0-33.4); MEAN CORPUSCULAR HGB CONC 33.8 g/dL (32.0-36.0); MEAN CORPUSCULAR VOLUME 83 fl (80-97); MONOCYTES % (AUTO) 7.6 % (3-13); PLATELET COUNT 158 10^3/uL (150-450); RED BLOOD COUNT 3.39 10^6/uL (3.72-5.28); RED CELL DISTRIBUTION WIDTH 13.8 % (11.5-14.0); SEGMENTED NEUTROPHILS % (AUTO) 76.6 % (42-78); TOTAL CELLS COUNTED % (AUTO) 100 %; WHITE BLOOD COUNT 12.8 10^3/uL (4.0-10.5)
[2019-02-18 05:43] LABS: ANION GAP 9 (5-19); BLOOD UREA NITROGEN 6 mg/dL (7-20); CARBON DIOXIDE 17 mmol/L (22-30); CHLORIDE 113 mmol/L (98-107); GLUCOSE 107 mg/dL (75-110); POTASSIUM 3.5 mmol/L (3.6-5.0); SODIUM 138.6 mmol/L (137-145)
[2019-02-18] MEDS: IPRATROPIUM/ALBUTEROL 0.5-2.5 MG/3 ML AMPUL NEB SCH ×2 (07:32→19:56)
[2019-02-18] MEDS: NORMAL SALINE 1000 ML 1,000 ML IV PRN (07:36)
[2019-02-18] MEDS ORDERED: NORMAL SALINE 1000 ML 1,000 ML IV PRN (08:28)
--- NOTE | 2019-02-18 09:38 | RADIOLOGY REPORT (SQ) ---
EXAM DESCRIPTION: CHEST SINGLE VIEW COMPLETED DATE/TIME: 02/18/2019 8:36 am REASON FOR STUDY: sob COMPARISON: CT angio chest 02/16/2019 EXAM PARAMETERS: NUMBER OF VIEWS: One view. TECHNIQUE: Single frontal radiographic view of the chest acquired. RADIATION DOSE: NA LIMITATIONS: None. FINDINGS: LUNGS AND PLEURA: Increase in left basilar consolidation compared to CT 02/16/2019 left lowe r lobe, worrisome for pneumonia. Trace left pleural effusion is now present. There is patchy airspace disease at the right lung base and right perihilar region, atelectasis versu s pneumonia. No right pleural effusion. No right or left pneumothorax. MEDIASTINUM AND HILAR STRUCTURES: No masses. Contour normal. HEART AND VASCULAR STRUCTURES: Mild cardiomegaly BONES: No acute findings. HARDWARE: None in the chest. OTHER: No other significant finding. IMPRESSION: Increasing left basilar airspace disease atelectasis versus pneumonia. Trace left pleural effusion is no evident. TECHNICAL DOCUMENTATION: JOB ID: [id number] [employer]- All Rights Reserved Reading location - IP/workstation name: [email or web address]
[2019-02-18] MEDS: IPRATROPIUM/ALBUTEROL 0.5-2.5 MG/3 ML AMPUL NEB PRN (09:57)
[2019-02-18] MEDS: ENOXAPARIN SODIUM INJ 80 MG/0.8 ML DISP.SYRIN SUBCUT SCH ×2 (10:17→21:18)
[2019-02-18] MEDS: ACETAMINOPHEN 325 MG TABLET PO PRN ×2 (10:30→23:24)
--- NOTE | 2019-02-18 11:22 | PDOC PROGRESS REPORT ---
Subjective Progress Note for:: 02/18/19 Subjective:: This is a 18 years old female patient with no significant past medical history presented with 1 week history of right-sided back pain associated with fever. Her blood work shows market leukocytosis of 28,000 with bandemia and lactic acidosis. On examination also patient found to be hypotensive, tachypneic and febrile. Her CT scan of the abdomen and pelvis shows perinephric and periureteric stranding of the right kidney which is compatible with pyelone phritis. Patient has been started on Zosyn. Running I seen patient resting in bed comfortably and she reports this her right-sided back pain is relatively improving. 02/17/2019: Yesterday during my rounding patient was in stable condition,. She request for discharge. In the afternoon her condition was complicated patient become toxics with fever of 103.4, tachypneic ranging between 28-36, hypotensive and tachycardic greater than 140. She is bolused with 3 L of normal saline and maintained at 200 mm/h. Her fever subsided after she was given Motrin 800 mg p.o. stat. This morning I reevaluated the patient she is more awake alert conversant. Her vital signs are stable. Her blood work shows her white cell count is trending down, at admission it was 28.8 date is 16.4. Her urine cultu re is positive for gram-negative rods most probably E. coli. Patient has been on Zosyn so we de-escalate based on her culture results and clinical response. 02/18/2019:Yesterday night patient has an episode of tach aguilar tachycardia and febrile episode with T-max of 102. Given a dose of Motrin and her fever subsided. CT scan of the abdomen and pelvis is negative for perinephric or intrarenal abscess. This morning will have a chest x-ray and reported as trace pleural effusion and increased airspace disease atelectasis versus pneumonia. Patient is already on Zosyn. Her white cell count is trending down remarkably at admission her white cell count is 29 today it is 12.8. Morning patient seen and examined at bedside she is propped up she is awake alert oriented she is not in pain or distress I found her while she started chatting with family members. Reason For Visit: SEPSIS PYELONEPHRITIS Physical Exam Vital Signs: Temp Pulse Resp BP Pulse Ox 98.6 F 92 H 22 122/72 92 02/18/19 07:26 02/18/19 09:57 02/18/19 09:57 02/18/19 07:26 02/18/19 09:57 Intake & Output 02/17/19 02/18/19 02/19/19 06:59 06:59 06:59 Intake Total 5524 2092 Output Total 1100 1200 Balance 4424 892 Weight 79.6 kg 80.1 kg General appearance: PRESENT: no acute distress Head exam: PRESENT: atraumatic Eye exam: PRESENT: conjunctiva pink Neck exam: ABSENT: carotid bruit, JVD, lymphadenopathy, thyromegaly Respiratory exam: PRESENT: clear to auscultation brice. ABSENT: rales, rhonchi, wheezes GI/Abdominal exam: PRESENT: normal bowel sounds, soft. ABSENT: distended, guarding, mass, organolmegaly, rebound, tenderness Neurological exam: PRESENT: alert, awake, oriented to person, oriented to place, oriented to time, oriented to situation Results Laboratory Results: 02/18/19 04:56 02/18/19 04:56 02/17/19 02/18/19 02/18/19 18:50 00:50 04:56 WBC 12.8 H RBC 3.39 L Hgb 9.5 L Hct 28.2 L MCV 83 MCH 28.1 MCHC 33.8 RDW 13.8 Plt Count 158 Seg Neutrophils % 76.6 Lymphocytes % 14.9 Monocytes % 7.6 Eosinophils % 0.7 Basophils % 0.2 Absolute Neutrophils 9.8 H Absolute Lymphocytes 1.9 Absolute Monocytes 1.0 Absolute Eosinophils 0.1 Absolute Basophils 0.0 Carbonic Acid 0.81 L HCO3/H2CO3 Ratio 21:1 ABG pH 7.42 ABG pCO2 26.8 L ABG pO2 48.0 L ABG HCO3 17.1 L ABG O2 Saturation 85.5 L ABG Base Excess -6.0 FiO2 3L Sodium 139.2 Potassium 3.1 L Chloride 113 H Carbon Dioxide 20 L Anion Gap 6 BUN 7 Creatinine 0.66 Est GFR ( Amer) > 60 Est GFR (Non-Af Amer) > 60 Glucose 88 Calcium 8.0 L Magnesium 1.7 02/18/19 04:56 WBC RBC Hgb Hct MCV MCH MCHC RDW Plt Count Seg Neutrophils % Lymphocytes % Monocytes % Eosinophils % Basophils % Absolute Neutrophils Absolute Lymphocytes Absolute Monocytes Absolute Eosinophils Absolute Basophils Carbonic Acid HCO3/H2CO3 Ratio ABG pH ABG pCO2 ABG pO2 ABG HCO3 ABG O2 Saturation ABG Base Excess FiO2 Sodium 138.6 Potassium 3.5 L Chloride 113 H Carbon Dioxide 17 L Anion Gap 9 BUN 6 L Creatinine 0.64 Est GFR ( Amer) > 60 Est GFR (Non-Af Amer) > 60 Glucose 107 Calcium 8.0 L Magnesium 02/15/19 20:24 Clean Catch Midstream Urine Culture - Final Escherichia Coli Impressions: Chest/Abdomen CTA 02/16/19 00:00 IMPRESSION: Mild dependent atelectasis. No evidence of pulmonary embolus. No aortic aneurysm or dissection. Abdomen/Pelvis CT 02/17/19 00:00 IMPRESSION: 1. Persistent mild right perinephric edema with abnormal enhancement in the upper pole typical for pyelonephritis. No discrete abscess. 2. New bilateral pleural effusions with partially visualized lower lobe infiltrates 3. Small amount of free fluid in the pelvis, new since 02/15/2019 Chest X-Ray 02/18/19 00:00 IMPRESSION: Increasing left basilar airspace disease atelectasis versus pneumonia. Trace left pleural effusion is no evident. Assessment and Plan - Diagnosis (1) Severe sepsis Is this a current diagnosis for this admission?: Yes Plan: Patient has been doing well. (2) Pyelonephritis of right kidney Is this a current diagnosis for this admission?: Yes Plan: PET/CT is negative for intra-or perinephric abscess. (3) Leukocytosis Qualifiers: Leukocytosis type: bandemia Qualified Code(s): D72.825 - Bandemia Is this a current diagnosis for this admission?: Yes Plan: It is trending down markedly.
--- NOTE | 2019-02-18 19:17 | EKG REPORT ---
SEVERITY:- NORMAL ECG - SINUS RHYTHM : Confirmed by: Toña Moore 18-Feb-2019 19:15:31
--- NOTE | 2019-02-18 19:17 | EKG REPORT ---
SEVERITY:- OTHERWISE NORMAL ECG - SINUS TACHYCARDIA : Confirmed by: Toña Moore 18-Feb-2019 19:15:28
[2019-02-19 05:39] LABS: ABSOLUTE EOSINOPHILS # (AUTO) 0.2 10^3/uL (0.0-0.6); ABSOLUTE NEUT (AUTO) 6.1 10^3/uL (1.7-8.2); BASOPHILS % (AUTO) 0.3 % (0-2); EOSINOPHILS % (AUTO) 1.9 % (0-6); HEMATOCRIT 29.1 % (36.0-47.0); HEMOGLOBIN 9.8 g/dL (12.0-15.5); LYMPHOCYTES % (AUTO) 21.8 % (13-45); MEAN CORPUSCULAR HEMOGLOBIN 27.9 pg (27.0-33.4); MEAN CORPUSCULAR HGB CONC 33.7 g/dL (32.0-36.0); MEAN CORPUSCULAR VOLUME 83 fl (80-97); MONOCYTES % (AUTO) 10.3 % (3-13); PLATELET COUNT 210 10^3/uL (150-450); RED BLOOD COUNT 3.51 10^6/uL (3.72-5.28); RED CELL DISTRIBUTION WIDTH 14.1 % (11.5-14.0); SEGMENTED NEUTROPHILS % (AUTO) 65.7 % (42-78); TOTAL CELLS COUNTED % (AUTO) 100 %; WHITE BLOOD COUNT 9.3 10^3/uL (4.0-10.5)
[2019-02-19] MEDS: PIPERACILLIN SODIUM/TAZOBACTAM 3.375 GM in NORMAL SALINE 100 ML IV SCH ×4 (06:02→23:42)
[2019-02-19 06:04] LABS: ANION GAP 7 (5-19); BLOOD UREA NITROGEN 3 mg/dL (7-20); CALCIUM 8.3 mg/dL (8.4-10.2); CARBON DIOXIDE 21 mmol/L (22-30); CHLORIDE 112 mmol/L (98-107); GLUCOSE 83 mg/dL (75-110); POTASSIUM 3.4 mmol/L (3.6-5.0); SODIUM 139.8 mmol/L (137-145)
[2019-02-19] MEDS: IPRATROPIUM/ALBUTEROL 0.5-2.5 MG/3 ML AMPUL NEB SCH ×2 (08:03→19:49)
[2019-02-19] MEDS ORDERED: POTASSIUM CHLORIDE 10 MEQ CAPSULE.ER PO ONE (08:30)
[2019-02-19] MEDS: ENOXAPARIN SODIUM INJ 80 MG/0.8 ML DISP.SYRIN SUBCUT SCH ×2 (09:29→21:17)
--- NOTE | 2019-02-19 11:24 | PDOC PROGRESS REPORT ---
Subjective Progress Note for:: 02/19/19 Subjective:: This is a 18 years old female patient with no significant past medical history presented with 1 week history of right-sided back pain associated with fever. Her blood work shows market leukocytosis of 28,000 with bandemia and lactic acidosis. On examination also patient found to be hypotensive, tachypneic and febrile. Her CT scan of the abdomen and pelvis shows perinephric and periureteric stranding of the right kidney which is compatible with pyelone phritis. Patient has been started on Zosyn. Running I seen patient resting in bed comfortably and she reports this her right-sided back pain is relatively improving. 02/17/2019: Yesterday during my rounding patient was in stable condition,. She request for discharge. In the afternoon her condition was complicated patient become toxics with fever of 103.4, tachypneic ranging between 28-36, hypotensive and tachycardic greater than 140. She is bolused with 3 L of normal saline and maintained at 200 mm/h. Her fever subsided after she was given Motrin 800 mg p.o. stat. This morning I reevaluated the patient she is more awake alert conversant. Her vital signs are stable. Her blood work shows her white cell count is trending down, at admission it was 28.8 date is 16.4. Her urine cultu re is positive for gram-negative rods most probably E. coli. Patient has been on Zosyn so we de-escalate based on her culture results and clinical response. 02/18/2019:Yesterday night patient has an episode of tach aguilar tachycardia and febrile episode with T-max of 102. Given a dose of Motrin and her fever subsided. CT scan of the abdomen and pelvis is negative for perinephric or intrarenal abscess. This morning will have a chest x-ray and reported as trace pleural effusion and increased airspace disease atelectasis versus pneumonia. Patient is already on Zosyn. Her white cell count is trending down remarkably at admission her white cell count is 29 today it is 12.8. Morning patient seen and examined at bedside she is propped up she is awake alert oriented she is not in pain or distress I found her while she started chatting with family members. 02/19/2019: Patient seen resting in bed comfortably. Her vital signs are within normal limits. Her white cell count completely normalized. We will continue the IV Zosyn. Reason For Visit: SEPSIS PYELONEPHRITIS Physical Exam Vital Signs: Temp Pulse Resp BP Pulse Ox 98.9 F 91 H 18 133/83 H 89 L 02/19/19 07:39 02/19/19 08:06 02/19/19 08:06 02/19/19 07:39 02/19/19 08:06 Intake & Output 02/18/19 02/19/19 02/20/19 06:59 06:59 06:59 Intake Total 2092 1670 100 Output Total 1200 Balance 892 1670 100 Weight 80.1 kg 89.3 kg General appearance: PRESENT: no acute distress Head exam: PRESENT: atraumatic Eye exam: PRESENT: conjunctiva pink Mouth exam: PRESENT: moist Neck exam: ABSENT: carotid bruit, JVD, lymphadenopathy, thyromegaly Respiratory exam: PRESENT: clear to auscultation brice. ABSENT: rales, rhonchi, wheezes Cardiovascular exam: PRESENT: RRR. ABSENT: diastolic murmur, rubs, systolic murmur GI/Abdominal exam: PRESENT: normal bowel sounds, soft. ABSENT: distended, guarding, mass, organolmegaly, rebound, tenderness Neurological exam: PRESENT: alert, awake, oriented to person, oriented to place, oriented to time, oriented to situation Results Laboratory Results: 02/19/19 05:02 02/19/19 05:02 02/19/19 02/19/19 05:02 05:02 WBC 9.3 RBC 3.51 L Hgb 9.8 L Hct 29.1 L MCV 83 MCH 27.9 MCHC 33.7 RDW 14.1 H Plt Count 210 Seg Neutrophils % 65.7 Lymphocytes % 21.8 Monocytes % 10.3 Eosinophils % 1.9 Basophils % 0.3 Absolute Neutrophils 6.1 Absolute Lymphocytes 2.0 Absolute Monocytes 1.0 Absolute Eosinophils 0.2 Absolute Basophils 0.0 Sodium 139.8 Potassium 3.4 L Chloride 112 H Carbon Dioxide 21 L Anion Gap 7 BUN 3 L Creatinine 0.65 Est GFR ( Amer) > 60 Est GFR (Non-Af Amer) > 60 Glucose 83 Calcium 8.3 L 02/15/19 20:24 Clean Catch Midstream Urine Culture - Final Escherichia Coli Impressions: Chest/Abdomen CTA 02/16/19 00:00 IMPRESSION: Mild dependent atelectasis. No evidence of pulmonary embolus. No aortic aneurysm or dissection. Abdomen/Pelvis CT 02/17/19 00:00 IMPRESSION: 1. Persistent mild right perinephric edema with abnormal enhancement in the upper pole typical for pyelonephritis. No discrete abscess. 2. New bilateral pleural effusions with partially visualized lower lobe infiltrates 3. Small amount of free fluid in the pelvis, new since 02/15/2019 Chest X-Ray 02/18/19 00:00 IMPRESSION: Increasing left basilar airspace disease atelectasis versus pneumonia. Trace left pleural effusion is no evident. Assessment and Plan - Diagnosis (1) Severe sepsis Is this a current diagnosis for this admission?: Yes Plan: B resolving (2) Pyelonephritis of right kidney Is this a current diagnosis for this admission?: Yes Plan: Has been resolving (3) Leukocytosis Qualifiers: Leukocytosis type: bandemia Qualified Code(s): D72.825 - Bandemia Is this a current diagnosis for this admission?: Yes Plan: Resolved (4) Obesity (BMI 35.0-39.9 without comorbidity) Is this a current diagnosis for this admission?: Yes Plan: Patient encouraged to do lifestyle modification in the form of healthy diet regular exercise and weight loss.
[2019-02-19] MEDS: NORMAL SALINE 1000 ML 1,000 ML IV PRN ×2 (11:37→23:47)
[2019-02-19] MEDS: ACETAMINOPHEN 325 MG TABLET PO PRN (16:39)
[2019-02-19] MEDS ORDERED: IBUPROFEN 800 MG TABLET ONE (17:36)
[2019-02-19] MEDS ORDERED: IBUPROFEN 800 MG TABLET PO ONE (17:45)
[2019-02-19 23:54] VITALS: BP 143/80
[2019-02-20] MEDS: PIPERACILLIN SODIUM/TAZOBACTAM 3.375 GM in NORMAL SALINE 100 ML IV SCH (06:19)
[2019-02-20 06:55] LABS: APPEARANCE,URINE CLEAR; BILIRUBIN,URINE NEGATIVE (NEGATIVE); COLOR,URINE STRAW; GLUCOSE, URINE NEGATIVE (NEGATIVE); KETONES,URINE NEGATIVE (NEGATIVE); URINE SPECIFIC GRAVITY 1.005
[2019-02-20 06:56] LABS: LEUKOCYTE ESTERASE,URINE NEGATIVE (NEGATIVE); NITRITE,URINE NEGATIVE (NEGATIVE); PROTEIN,URINE NEGATIVE (NEGATIVE); UROBILINOGEN,URINE NEGATIVE mg/dL (<2.0)
[2019-02-20 07:29] LABS: HEMATOCRIT 30.1 % (36.0-47.0); HEMOGLOBIN 10.2 g/dL (12.0-15.5); MEAN CORPUSCULAR HEMOGLOBIN 27.9 pg (27.0-33.4); MEAN CORPUSCULAR HGB CONC 33.9 g/dL (32.0-36.0); MEAN CORPUSCULAR VOLUME 83 fl (80-97); PLATELET COUNT 255 10^3/uL (150-450); RED BLOOD COUNT 3.64 10^6/uL (3.72-5.28); RED CELL DISTRIBUTION WIDTH 14.4 % (11.5-14.0); WHITE BLOOD COUNT 9.1 10^3/uL (4.0-10.5)
[2019-02-20] MEDS: ACETAMINOPHEN 325 MG TABLET PO PRN (07:58)
[2019-02-20] MEDS: IPRATROPIUM/ALBUTEROL 0.5-2.5 MG/3 ML AMPUL NEB SCH (08:27)
--- NOTE | 2019-02-20 08:47 | PDOC DISCHARGE SUMMARY ---
General - Admit/Disc Date/PCP Admission Date/Primary Care Provider: 02/15/19 23:01 Discharge Date: 02/20/19 - Discharge Diagnosis (1) Severe sepsis Is this a current diagnosis for this admission?: Yes (2) Pyelonephritis of right kidney Is this a current diagnosis for this admission?: Yes (3) Leukocytosis Is this a current diagnosis for this admission?: Yes (4) Obesity (BMI 35.0-39.9 without comorbidity) Is this a current diagnosis for this admission?: Yes - Additional Information Resuscitation Status: Full Code Prescriptions: Levofloxacin [Levaquin 500 mg Tablet] 500 mg PO DAILY #10 tablet Home Medications: Levofloxacin [Levaquin 500 mg Tablet] 500 mg PO DAILY #10 tablet 02/20/19 History of Present Illness History of Present Illness: NATE SALCEDO is a 18 year old female without past medical history who presents with 7 days of back pain prompting to seek evaluation at [facility]. She suggest a history consistent of muscular strain and is diagnosed with such but pain persist developing fever prompting reevaluation. She is found to have leukocytosis, bandemia, right-sided pyelonephritis without abscess or hydronephrosis. She denies previous history of recent antibiotic use. She started on empiric antibiotics and referred to the hospitalist for admission. She promptly develops severe sepsis with hypotension partially responsive to 4 L of saline, requiring levofed Hospital Course Hospital Course: his is a 18 years old female patient with no significant past medical history presented with 1 week history of right-sided back pain associated with fever. Her blood work shows market leukocytosis of 28,000 with bandemia and lactic acidosis. On examination also patient found to be hypotensive, tachypneic and febrile. Her CT scan of the abdomen and pelvis shows perinephric and periureteric stranding of the right kidney which is compatible with pyelonephritis. Patient has been started on Zosyn. Running I seen patient resting in bed comfortably and she reports this her right-sided back pain is relatively improving. 02/17/2019: Yesterday during my rounding patient was in stable condition,. She request for discharge. In the afternoon her condition was complicated patient become toxics with fever of 103.4, tachypneic ranging between 28-36, hypotensive and tachycardic greater than 140. She is bolused with 3 L of normal saline and maintained at 200 mm/h. Her fever subsided after she was given Motrin 800 mg p.o. stat. This morning I reevaluated the patient she is more awake alert conversant. Her vital signs are stable. Her blood work shows her white cell count is trending down, at admission it was 28.8 date is 16.4. Her urine culture is positive for gram-negative rods most probably E. coli. Patient has been on Zosyn so we de-escalate based on her culture results and clinical response. 02/18/2019:Yesterday night patient has an episode of tach aguilar tachycardia and febrile episode with T-max of 102. Given a dose of Motrin and her fever subsided. CT scan of the abdomen and pelvis is negative for perinephric or intrarenal abscess. This morning will have a chest x-ray and reported as trace pleural effusion and increased airspace disease atelectasis versus pneumonia. Patient is already on Zosyn. Her white cell count is trending down remarkably at admission her white cell count is 29 today it is 12.8. Morning patient seen and examined at bedside she is propped up she is awake alert oriented she is not in pain or distress I found her while she started chatting with family members. 02/19/2019: Patient seen resting in bed comfortably. Her vital signs are within normal limits. Her white cell count completely normalized. We will continue the IV Zosyn. 02/20/2019: Patient seen and examined at bedside. She is awake alert oriented. She is not in pain or distress. Patient is eager to go home today. Her vital signs and blood works are unremarkable. Patient is stable enough to go home today. I will send her with Levaquin 500 mg p.o. daily for 10 days and follow- up with her primary care physician. Physical Exam Vital Signs: Temp Pulse Resp BP Pulse Ox 98.8 F 71 21 143/80 H 92 02/19/19 23:53 02/20/19 02:00 02/19/19 23:53 02/19/19 23:53 02/19/19 23:53 Intake & Output 02/19/19 02/20/19 02/21/19 06:59 06:59 06:59 Intake Total 1670 3604 Balance 1670 3604 Weight 89.3 kg 88.7 kg General appearance: PRESENT: obese Eye exam: PRESENT: conjunctiva pink Mouth exam: PRESENT: dry mucosa Neck exam: ABSENT: carotid bruit, JVD, lymphadenopathy, thyromegaly Respiratory exam: PRESENT: clear to auscultation brice. ABSENT: rales, rhonchi, wheezes Cardiovascular exam: PRESENT: RRR. ABSENT: diastolic murmur, rubs, systolic murmur GI/Abdominal exam: PRESENT: normal bowel sounds, soft. ABSENT: distended, guarding, mass, organolmegaly, rebound, tenderness Neurological exam: PRESENT: alert, awake, oriented to person, oriented to place Results Laboratory Results: 02/20/19 07:13 02/19/19 05:02 02/20/19 02/20/19 02/20/19 06:25 06:25 07:13 WBC 9.1 RBC 3.64 L Hgb 10.2 L Hct 30.1 L MCV 83 MCH 27.9 MCHC 33.9 RDW 14.4 H Plt Count 255 Urine Color STRAW Urine Appearance CLEAR Urine pH 7.0 Ur Specific Harrison 1.005 Urine Protein NEGATIVE Urine Glucose (UA) NEGATIVE Urine Ketones NEGATIVE Urine Blood NEGATIVE Urine Nitrite NEGATIVE Ur Leukocyte Esterase NEGATIVE Urine WBC (Auto) 1 Urine RBC (Auto) 0 Stool Occult Blood NEGATIVE Impressions: Chest/Abdomen CTA 02/16/19 00:00 IMPRESSION: Mild dependent atelectasis. No evidence of pulmonary embolus. No aortic aneurysm or dissection. Abdomen/Pelvis CT 02/17/19 00:00 IMPRESSION: 1. Persistent mild right perinephric edema with abnormal enhancement in the upper pole typical for pyelonephritis. No discrete abscess. 2. New bilateral pleural effusions with partially visualized lower lobe infiltrates 3. Small amount of free fluid in the pelvis, new since 02/15/2019 Chest X-Ray 02/18/19 00:00 IMPRESSION: Increasing left basilar airspace disease atelectasis versus pneumonia. Trace left pleural effusion is no evident. Qualifiers - * PATIENT BEING DISCHARGED WITH ANY OF THE FOLLOWING DIAGNOSIS: No Acute Heart Failure - Is this a Heart Failure Patient?: No LVEF < 40%?: No- if no continue to question #3 3. Anticoagulant therapy for permanect/persistent/paraoxysmal Afib or Aflutter: N/A
[2019-02-20] MEDS: ENOXAPARIN SODIUM INJ 80 MG/0.8 ML DISP.SYRIN SUBCUT SCH (09:03)
== END 2019-02-20 09:30 | disposition home or self-care (01) | DRG 872 ==
LOC: ER 19:21 → EH 23:01 → ICU 02-16 02:20 → 4S 02-17 15:15
PROVIDERS: ADMIT Internal Medicine; ATTEND Internal Medicine
DX: A41.9 Sepsis, unspecified organism (principal); N12 Tubulo-interstitial nephritis, not specified as acute or chronic; E87.2 Acidosis; R65.20 Severe sepsis without septic shock; E66.9 Obesity, unspecified; R00.0 Tachycardia, unspecified; Z68.35 Body mass index [BMI] 35.0-35.9, adult
CPT/HCPCS: 36415; 36600; 71045; 71275; 74176; 74177; 80048; 80053; 81001; 82272; 82803; 82962; 83605; 83735; 84703; 85025; 85027; 85610; 85652; 85730; 86140; 87040; 87086; 87088; 87186; 93005; 93010; 94799; 96361; 96365; 96366; 96375; 99285; J0610; J1650; J1885; J1956; J2060; J2543; J3370; J3480; J3490; J7030; J7050; J7060; J7120; J7620

== ENCOUNTER 2019-05-06 10:44 | Emergency (ER) | payer OTHER ==
--- NOTE | 2019-05-06 11:06 | ER Document Report ---
ED Medical Screen (RME) - General Chief Complaint: Nausea/Vomiting Stated Complaint: VOMITING Time Seen by Provider: 05/06/19 11:01 Mode of Arrival: Ambulatory Information source: Patient Notes: This 18-year-old female presents emergency department with abdominal cramping. She is approximately 4 to 5 weeks G1, P0. Reports she also vomited from midnight on until 7:00 this morning. Reports she is not nauseous now requesting p.o. fluids. Reports she spotted a little acute few days ago. Denies vaginal spotting denies abdominal cramping denies nausea at this time. No complaints of fever or diarrhea. I have greeted and performed a rapid initial assessment of this patient. A comprehensive ED assessment and evaluation of the patient, analysis of test results and completion of the medical decision making process will be conducted by additional ED providers. Dictation of this chart was performed using voice recognition software; therefore, there may be some unintended grammatical errors. TRAVEL OUTSIDE OF THE [place] IN LAST 30 DAYS: No - Related Data Allergies/Adverse Reactions: morphine Adverse Reaction (Verified 02/15/19 20:57) Past Medical History - Social History Chew tobacco use (# tins/day): No Frequency of alcohol use: None Drug Abuse: None Renal/ Medical History: Denies: Hx Peritoneal Dialysis Physical Exam - Vital signs Vitals: Temp Pulse Resp BP Pulse Ox 98.4 F 80 16 134/59 H 100 05/06/19 10:57 05/06/19 10:57 05/06/19 10:57 05/06/19 10:57 05/06/19 10:57 Course - Vital Signs Vital signs: Temp Pulse Resp BP Pulse Ox 98.4 F 80 16 134/59 H 100 05/06/19 10:57 05/06/19 10:57 05/06/19 10:57 05/06/19 10:57 05/06/19 10:57
--- NOTE | 2019-05-06 11:22 | ER Document Report ---
ED General - General Chief Complaint: Nausea/Vomiting Stated Complaint: VOMITING Time Seen by Provider: 05/06/19 11:01 Primary Care Provider: LAURA BISHOP MD [ACTIVE STAFF] - Follow up as needed TESSY DENNISON MD [COMMUNITY BASED STAFF] - Follow up as needed Mode of Arrival: Ambulatory TRAVEL OUTSIDE OF THE [place] IN LAST 30 DAYS: No - HPI Notes: 18-year-old female , 5 weeks presents to the ED for vaginal spotting, nausea and vomiting that started approximately 1 day ago with intermittent mild abdominal cramping. Eating and drinking without issues, no rashes. Last menstrual period was March 30 2019. Not tried any [id number] medications. Denies fevers, chills, chest pain,palpitations, shortness of breath, dyspnea, diarrhea, abdominal pain, hematuria,blurred vision, double vision, loss of vision, speech changes, LH, dizziness, syncope, headaches, wheezing, ST, URI, neck pain, weakness, bowel or bladder dysfunction, saddle anesthesia, numbness or tingling in bilateral upper or lower extremities equally, muscle paralysis, weakness in bilateral upper or lower extremities equally or rash. - Related Data Allergies/Adverse Reactions: morphine Adverse Reaction (Verified 02/15/19 20:57) Past Medical History - General Information source: Patient - Social History Smoking Status: Never Smoker Chew tobacco use (# tins/day): No Frequency of alcohol use: None Drug Abuse: None Family History: Other - Bulging disc Patient has suicidal ideation: No Patient has homicidal ideation: No Renal/ Medical History: Denies: Hx Peritoneal Dialysis Review of Systems - Review of Systems Constitutional: No symptoms reported EENT: No symptoms reported Cardiovascular: No symptoms reported Respiratory: No symptoms reported Gastrointestinal: No symptoms reported Genitourinary: No symptoms reported Female Genitourinary: See HPI Musculoskeletal: No symptoms reported Skin: No symptoms reported Hematologic/Lymphatic: No symptoms reported Neurological/Psychological: No symptoms reported Physical Exam - Vital signs Vitals: Temp Pulse Resp BP Pulse Ox 98.4 F 80 16 134/59 H 100 05/06/19 10:57 05/06/19 10:57 05/06/19 10:57 05/06/19 10:57 05/06/19 10:57 - Notes Notes: PHYSICAL EXAMINATION: GENERAL: Well-appearing, well-nourished and in no acute distress. HEAD: Atraumatic, normocephalic. EYES: Pupils equal round and reactive to light, extraocular movements intact, conjunctiva are normal. ENT: Nares patent, oropharynx clear without exudates. Moist mucous membranes. NECK: Normal range of motion, supple without lymphadenopathy LUNGS: Breath sounds clear to auscultation bilaterally and equal. No wheezes rales or rhonchi. HEART: Regular rate and rhythm without murmurs ABDOMEN: Soft, nontender, nondistended abdomen. No guarding, no rebound. No masses appreciated. Female : External genitalia without erythema, exudate or discharge. Vaginal vault is without discharge. Cervix is of normal color without lesion. There is no bleeding noted. Uterus is noted to be of normal size and nontender. No cervical motion tenderness is seen. No masses are palpated. cervical os closed. Musculoskeletal: Normal range of motion, no pitting or edema. No cyanosis. NEUROLOGICAL: Cranial nerves grossly intact. Normal speech, normal gait. Normal sensory, motor exams PSYCH: Normal mood, normal affect. SKIN: Warm, Dry, normal turgor, no rashes or lesions noted. Course - Re-evaluation Re-evalutation: 05/06/19 12:01 18-year-old female afebrile vital stable no distress. CBC negative for leukocytosis or anemia, Urinalysis does show UTI, will start on oral antibiotics. Transvaginal ultrasound does not show an intra-or extrauterine , left and right ovary is measured with Doppler flow to them. Patient's hCG is 397. CMP negative for hepatic or renal dysfunction, no electrolyte disturbances. Wet mount unremarkable. GC pending. Discussed with patient that she needs a repeat hCG and 48 hours as well as a repeat ultrasound, she does need to follow-up with her primary care provider for reevaluation in 48 hours. After performing a Medical Screening Examination, I estimate there is LOW risk for ACUTE APPENDICITIS, BOWEL OBSTRUCTION, ACUTE CHOLECYSTITIS, PERFORATED DIVERTICULITIS, INCARCERATED HERNIA, PANCREATITIS, PELVIC INFLAMMATORY DISEASE, PERFORATED ULCER, ECTOPIC , or TUBO-OVARIAN ABSCESS, thus I consider the discharge disposition reasonable. Also, there is no evidence or peritonitis, sepsis, or toxicity. I have reevaluated this patient multiple times and no significant life threatening changes are noted. The patient and I have discussed the diagnosis and risks, and we agree with discharging home with close follow-up with the understanding that symptoms and presentations can change. We also discussed returning to the Emergency Department immediately if new or worsening symptoms occur. We have discussed the symptoms which are most concerning (e.g., bloody stool, fever, changing or worsening pain, vomiting) that necessitate immediate r eturn. - Vital Signs Vital signs: Temp Pulse Resp BP Pulse Ox 98.4 F 80 16 134/59 H 100 05/06/19 10:57 05/06/19 10:57 05/06/19 10:57 05/06/19 10:57 05/06/19 10:57 - Laboratory Result Diagrams: 05/06/19 11:13 05/06/19 11:13 Laboratory results interpreted by me: 05/06/19 05/06/19 11:13 11:13 BUN 5 L Beta HCG, Quant 397.59 H Urine Nitrite POSITIVE H Ur Leukocyte Esterase LARGE H Discharge - Discharge Clinical Impression: UTI (urinary tract infection) Qualifiers: Weeks of gestation: less than 8 weeks Qualified Code(s): Z3A.01 - Less than 8 weeks gestation of Condition: Stable Disposition: HOME, SELF-CARE Instructions: Nitrofurantoin ([facility]), Urinary Tract Infection ([facility]), Urinary Tract Infection, Child ([facility]) Additional Instructions: You need a repeat hCG and transvaginal ultrasound in 48 hours Take antibiotic as directed for UTI, increase oral hydration. Return immediately for any new or worsening symptoms. Follow up with primary care provider, call tomorrow to make followup appointment. Prescriptions: Nitrofurantoin Macrocrystal [Macrodantin] 100 mg PO BID #20 capsule Forms: Return to Work Referrals: LAURA BISHOP MD [ACTIVE STAFF] - Follow up as needed TESSY DENNISON MD [COMMUNITY BASED STAFF] - Follow up as needed
[2019-05-06 11:36] LABS: ABSOLUTE EOSINOPHILS # (AUTO) 0.1 10^3/uL (0.0-0.6); ABSOLUTE LYMPHOCYTES (AUTO) 2.3 10^3/uL (0.5-4.7); ABSOLUTE MONOCYTES (AUTO) 0.5 10^3/uL (0.1-1.4); BASOPHILS % (AUTO) 0.4 % (0-2); HEMATOCRIT 39.1 % (36.0-47.0); HEMOGLOBIN 13.1 g/dL (12.0-15.5); LYMPHOCYTES % (AUTO) 33.1 % (13-45); MEAN CORPUSCULAR HEMOGLOBIN 27.5 pg (27.0-33.4); MEAN CORPUSCULAR HGB CONC 33.5 g/dL (32.0-36.0); MEAN CORPUSCULAR VOLUME 82 fl (80-97); MONOCYTES % (AUTO) 6.9 % (3-13); PLATELET COUNT 208 10^3/uL (150-450); RED BLOOD COUNT 4.76 10^6/uL (3.72-5.28); RED CELL DISTRIBUTION WIDTH 13.9 % (11.5-14.0); SEGMENTED NEUTROPHILS % (AUTO) 58.6 % (42-78); TOTAL CELLS COUNTED % (AUTO) 100 %; WHITE BLOOD COUNT 6.8 10^3/uL (4.0-10.5)
[2019-05-06 11:48] LABS: APPEARANCE,URINE CLOUDY; BILIRUBIN,URINE NEGATIVE (NEGATIVE); COLOR,URINE AMBER; GLUCOSE, URINE NEGATIVE (NEGATIVE); KETONES,URINE NEGATIVE (NEGATIVE); LEUKOCYTE ESTERASE,URINE LARGE (NEGATIVE); NITRITE,URINE POSITIVE (NEGATIVE); PROTEIN,URINE NEGATIVE (NEGATIVE); URINE SPECIFIC GRAVITY 1.018; UROBILINOGEN,URINE NEGATIVE mg/dL (<2.0)
[2019-05-06 11:58] LABS: ALKALINE PHOSPHATASE 80 U/L (50-135); ANION GAP 10 (5-19); ASPARTATE AMINO TRANSFERASE 22 U/L (5-30); BILIRUBIN,DIRECT 0.1 mg/dL (0.0-0.4); BILIRUBIN,TOTAL 0.4 mg/dL (0.2-1.3); BLOOD UREA NITROGEN 5 mg/dL (7-20); CALCIUM 9.4 mg/dL (8.4-10.2); CARBON DIOXIDE 24 mmol/L (22-30); CHLORIDE 104 mmol/L (98-107); GLUCOSE 107 mg/dL (75-110); POTASSIUM 3.6 mmol/L (3.6-5.0); TOTAL PROTEIN 6.8 g/dL (6.3-8.2)
[2019-05-06 12:08] LABS: EPITHELIALS (WET MOUNT) 3+ EPITHELIALS SEEN; T.VAGINALIS (WET MOUNT) NO TRICHOMONAS SEEN; WBCS (WET MOUNT) RARE WBCS SEEN; YEAST (WET MOUNT) NO YEAST SEEN
--- NOTE | 2019-05-06 12:29 | RADIOLOGY REPORT (SQ) ---
EXAM DESCRIPTION: U/S OB TRANSVAGINAL W/O DOP COMPLETED DATE/TIME: 05/06/2019 11:32 am REASON FOR STUDY: preg abd cramp COMPARISON: None. TECHNIQUE: Transvaginal static and realtime grayscale images acquired of the pelvis. Additional kofi cted spectral and color Doppler images recorded. All images stored on PACs. CLINICAL AGE 5 weeks 3 days LIMITATIONS: None. FINDINGS: UTERUS: The uterus measures 7.3 x 3.6 x 4.9 cm. No gestational sac identified. No yolk s ac seen. No pole identified. The endometrium is thickened measuring 1.1 cm. RIGHT ADNEXA: The right ovary measures 1.8 x 2.8 x2 cm. Doppler flow to the right ovary noted. LEFT ADNEXA: The left ovary measures 3.6 x 3.3 x 1.7 cm. Doppler flow to the left ovary is noted. FREE FLUID: None. CERVIX : The cervix is normal measuring 2.7 cm. IMPRESSION: NO VISUALIZED INTRA- OR EXTRAUTERINE . FOLLOW-UP ULTRASOUND AND SERIAL BHCG LEVELS STRONGLY RECOMMENDED TO ACCURATELY ASSESS STATU S. TECHNICAL DOCUMENTATION: JOB ID: [id number] [employer]- All Rights Reserved Reading location - IP/workstation name: [email or web address]
[2019-05-06 13:12] VITALS: BP 138/79
[2019-05-06 13:36] LABS: CHLAM PCR NOT DETECTED (NOT DETECT)
== END 2019-05-06 13:10 | disposition home or self-care (01) ==
LOC: ER 10:44
DX: O23.41 Unspecified infection of urinary tract in pregnancy, first trimester (principal); O26.891 Other specified pregnancy related conditions, first trimester; R10.9 Unspecified abdominal pain; O21.9 Vomiting of pregnancy, unspecified; O26.851 Spotting complicating pregnancy, first trimester; Z3A.01 Less than 8 weeks gestation of pregnancy
CPT/HCPCS: 36415; 76817; 80053; 81001; 84702; 85025; 86900; 86901; 87086; 87088; 87186; 87210; 87491; 87591

== ENCOUNTER 2019-05-08 10:22 | Emergency (ER) | payer OTHER ==
--- NOTE | 2019-05-08 10:50 | ER Document Report ---
ED General - General Chief Complaint: Vaginal Bleeding Stated Complaint: VAGINAL BLEEDING Time Seen by Provider: 05/08/19 10:43 Primary Care Provider: [facility] [Provider Group] - Follow up as needed TRAVEL OUTSIDE OF THE [place] IN LAST 30 DAYS: No - HPI Notes: Patient is a 18-year-old female G1, P0 approximately 4 to 5 weeks who presents for repeat hCG testing. Patient was evaluated 2 days ago due to nausea vomiting with some light vaginal spotting and very mild lower abdominal cramping and was found to have an hCG of 397. No visual was seen on transvaginal ultrasound. Patient states that all of her symptoms have since resolved soon after that and she is here for repeat hormone testing. Patient does not have any abdominal pain or discomfort. She has no other concerns or complaints. She is able to eat and drink without difficulty. She is urinating normally. No other vaginal odor or discharge. Patient states that she was also started on antibiotics for UTI. No vaginal bleeding, odor, or discharge. Denies any headache, fever, neck pain, URI, sore throat, chest pain, palpitations, syncope, cough, shortness of breath, wheeze, dyspnea, abdominal pain, nausea/vomiting/diarrhea, urinary retention, dysuria, hematuria, or rash. - Related Data Allergies/Adverse Reactions: morphine Adverse Reaction (Verified 02/15/19 20:57) Past Medical History - Social History Smoking Status: Never Smoker Family History: Other - Bulging disc Renal/ Medical History: Denies: Hx Peritoneal Dialysis Past Surgical History: Reports: Hx Oral Surgery - [place] teeth x4 Review of Systems - Review of Systems -: Yes All other systems reviewed and negative Physical Exam - Vital signs Vitals: Temp Pulse Resp BP Pulse Ox 98.3 F 80 17 121/71 100 05/08/19 10:26 05/08/19 10:26 05/08/19 10:26 05/08/19 10:26 05/08/19 10:26 - Notes Notes: PHYSICAL EXAMINATION: GENERAL: Well-appearing, well-nourished and in no acute distress. LUNGS: Breath sounds clear to auscultation bilaterally and equal. No wheezes rales or rhonchi. HEART: Regular rate and rhythm without murmurs, rubs, gallops. ABDOMEN: Soft, nontender, nondistended abdomen. No guarding, no rebound. Misty l bowel sounds present. No CVA tenderness bilaterally. Musculoskeletal: FROM to passive/active. Strength 5+/5. Extremities: No cyanosis, clubbing, or edema b/l. Peripheral pulses 2+. Capillary refill less than 3 seconds. NEUROLOGICAL: Normal speech, normal gait. PSYCH: Normal mood, normal affect. SKIN: Warm, Dry, normal turgor, no rashes or lesions noted. Course - Re-evaluation Re-evalutation: 05/08/19 10:51 Patient does not have any abdominal pain or discomfort. Nontender to palpation. No vaginal discharge, odor, or bleeding. Patient symptoms have since resolved. Patient was just seen 2 days ago. We will repeat hCG hormone, but not to perform repeat ultrasound as I do not suspect to see anything after 2 days with an initial hCG of 397. If patient's abdominal pain were to return in the future she may need a repeat at that time, but is otherwise scheduled with [facility] in the next couple weeks. 05/08/19 11:57 Patient is an afebrile, well-hydrated, 18-year-old female who presents to the ED with early . Vitals are acceptable without any significant tachycardia, tachypnea, or hypoxia. PE is otherwise unremarkable. HCG at 739 which has raised appropriately from 2 days ago. UA improving as well on macrobid which is sensitive to UTI bacteria on culture. Patient is nontoxic-appearing is tolerating p.o. without any difficulties. No other labs or imaging warranted at this time based on H&P. Her abd is soft and non-tender. Patient is aware that if she starts noticing lower pelvic pain that she will need an ultrasound performed again, but low suspicion that anything would show up after 2 days and she is otherwise asymptomatic. Low suspicion/risk for acute appendicitis, bowel obstruction, acute cholecystitis, acute cholangitis, perforated diverticulitis, incarcerated hernia, pancreatitis, perforated ulcer, peritonitis, sepsis, pelvic inflammatory disease, tubo-ovarian abscess, ovarian torsion, or other systemic emergent condition at this time. Patient is aware that her condition can change from initial presentation and she needs to monitor symptoms closely and seek medical attention if any acute changes. Conservative measures otherwise for symptoms. Recheck with your PCM/OBGYN in 3-5 days. Return to the ED with any worsening/concerning symptoms otherwise as reviewed in discharge. Patient is in agreement. - Vital Signs Vital signs: Temp Pulse Resp BP Pulse Ox 98.3 F 80 17 121/71 100 05/08/19 10:26 05/08/19 10:26 05/08/19 10:26 05/08/19 10:26 05/08/19 10:26 - Laboratory Laboratory results interpreted by me: 05/08/19 05/08/19 10:30 10:53 Beta HCG, Quant 739.17 H Ur Leukocyte Esterase MODERATE H Discharge - Discharge Clinical Impression: Early stage of Condition: Stable Disposition: HOME, SELF-CARE Additional Instructions: HCG has increased from 397 to 739 which seems appropriate in 2 days time. Finish the antibiotic as you did have a UTI upon presentation 2 days ago. If any return of significant abdominal pain to return for evaluation. Maintain fluid intake Proper hygienic technique Keep the skin clean Tylenol/ibuprofen as needed F/u with your PCM/OBGYN in 3-5 days for a recheck or as scheduled otherwise Return to the ED with any development of COKER/fever, trouble with vision, eye redness, worsening pain, urethral discharge, urinary retention, blood in the urine, flank pain, abdominal pain, n/v, Chest Pain, shortness of breath, joint pains, trouble breathing, or any other worsening/concerning symptoms as needed otherwise. Referrals: [facility] [Provider Group] - Follow up as needed
[2019-05-08 11:06] LABS: AMORPHOUS SEDIMENT,URINE TRACE /HPF; APPEARANCE,URINE CLOUDY; BILIRUBIN,URINE NEGATIVE (NEGATIVE); COLOR,URINE YELLOW; GLUCOSE, URINE NEGATIVE (NEGATIVE); KETONES,URINE NEGATIVE (NEGATIVE); LEUKOCYTE ESTERASE,URINE MODERATE (NEGATIVE); NITRITE,URINE NEGATIVE (NEGATIVE); PROTEIN,URINE NEGATIVE (NEGATIVE); URINE SPECIFIC GRAVITY 1.006; UROBILINOGEN,URINE NEGATIVE mg/dL (<2.0)
[2019-05-08 12:15] VITALS: BP 124/69
== END 2019-05-08 12:15 | disposition home or self-care (01) ==
LOC: ER 10:22
DX: O46.91 Antepartum hemorrhage, unspecified, first trimester (principal); O21.9 Vomiting of pregnancy, unspecified; O26.891 Other specified pregnancy related conditions, first trimester; R10.9 Unspecified abdominal pain; Z3A.01 Less than 8 weeks gestation of pregnancy
CPT/HCPCS: 36415; 81001; 84702; 99282

== ENCOUNTER 2019-09-06 13:09 | Emergency (ER) | payer OTHER ==
--- NOTE | 2019-09-06 13:16 | ER Document Report ---
ED Medical Screen (RME) - General Chief Complaint: Vaginal Bleeding Stated Complaint: VAGINAL BLEEDING/SPOTTING Time Seen by Provider: 09/06/19 13:14 TRAVEL OUTSIDE OF THE [place] IN LAST 30 DAYS: No - HPI Notes: 09/06/19 13:15 Patient is a 18-year-old female who presents complaining of spotting today and yesterday after having a home positive test recently. Patient states that she has not had a menstrual cycle since early August. She was here in April and was found to be , but miscarried in May. She is not having any pain or discomfort otherwise. No fever. I have treated and performed a rapid initial assessment of this patient. A comprehensive ED assessment and evaluation of the patient, analysis of test results and completion of medical decision making process will be conducted by additional ED providers. PHYSICAL EXAMINATION: GENERAL: Well-appearing, well-nourished and in no acute distress. A&Ox4. Answers questions appropriately. Abdomen: Limited exam, grossly nontender. - Related Data Allergies/Adverse Reactions: morphine Adverse Reaction (Verified 09/06/19 13:14) Past Medical History Renal/ Medical History: Denies: Hx Peritoneal Dialysis Past Surgical History: Reports: Hx Oral Surgery - [place] teeth x4 Physical Exam - Vital signs Vitals: Temp Pulse Resp BP Pulse Ox 97.4 F 78 18 148/61 H 100 09/06/19 13:12 09/06/19 13:12 09/06/19 13:12 09/06/19 13:12 09/06/19 13:12 Course - Vital Signs Vital signs: Temp Pulse Resp BP Pulse Ox 97.4 F 78 18 148/61 H 100 09/06/19 13:12 09/06/19 13:12 09/06/19 13:12 09/06/19 13:12 09/06/19 13:12
[2019-09-06 13:52] LABS: ABSOLUTE LYMPHOCYTES (AUTO) 1.9 10^3/uL (0.5-4.7); ABSOLUTE MONOCYTES (AUTO) 0.5 10^3/uL (0.1-1.4); ABSOLUTE NEUT (AUTO) 5.7 10^3/uL (1.7-8.2); BASOPHILS % (AUTO) 0.2 % (0-2); EOSINOPHILS % (AUTO) 0.4 % (0-6); HEMATOCRIT 41.8 % (36.0-47.0); HEMOGLOBIN 14.1 g/dL (12.0-15.5); MEAN CORPUSCULAR HEMOGLOBIN 27.7 pg (27.0-33.4); MEAN CORPUSCULAR HGB CONC 33.8 g/dL (32.0-36.0); MEAN CORPUSCULAR VOLUME 82 fl (80-97); MONOCYTES % (AUTO) 6.3 % (3-13); PLATELET COUNT 196 10^3/uL (150-450); RED BLOOD COUNT 5.09 10^6/uL (3.72-5.28); RED CELL DISTRIBUTION WIDTH 14.6 % (11.5-14.0); SEGMENTED NEUTROPHILS % (AUTO) 70.1 % (42-78); TOTAL CELLS COUNTED % (AUTO) 100 %; WHITE BLOOD COUNT 8.1 10^3/uL (4.0-10.5)
--- NOTE | 2019-09-06 14:07 | ER Document Report ---
HPI - HPI Patient complains to provider of: Vaginal spotting Time Seen by Provider: 09/06/19 13:14 Onset: Yesterday Onset/Duration: Persistent Pain Level: Denies Context: Presents recording vaginal spotting today and yesterday. Patient denies any pelvic pain or urinary symptoms. Associated Symptoms: Other - Vaginal spotting. denies: Fever, Vomiting Exacerbated by: Denies Relieved by: Denies Similar symptoms previously: No Recently seen / treated by doctor: No - ROS ROS below otherwise negative: Yes Systems Reviewed and Negative: Yes All other systems reviewed and negative - CONSTITUTIONAL Constitutional: DENIES: Fever, Chills - NEURO Neurology: DENIES: Headache, Weakness - GASTROINTESTINAL Gastrointestinal: DENIES: Abdominal Pain, Nausea - REPRODUCTIVE Reproductive: REPORTS: :, Abnormal bleeding / discharge - DERM Skin Color: Normal Skin Problems: None Past Medical History - General Information source: Patient - Social History Smoking Status: Never Smoker Chew tobacco use (# tins/day): No Frequency of alcohol use: None Drug Abuse: None 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 IN LAST 30 DAYS: No - HEENT HEENT: Atraumatic, Normocephalic - NECK Neck: Normal Inspection, Supple. negative: Lymphadenopathy-Left, Lymphadenopathy-Right - RESPIRATORY Respiratory: Breath Sounds Normal, No Respiratory Distress - CARDIOVASCULAR Cardiovascular: Regular Rate, Regular Rhythm, No Murmur - GI/ABDOMEN Gastrointestinal: Abdomen Soft, Abdomen Non-Tender, No Organomegaly - BACK Back: Normal Inspection. negative: CVA Tenderness-Right, CVA Tenderness-Left - MUSCULOSKELETAL/EXTREMETIES Musculoskeletal/Extremeties: MICHAEL FAIR - NEURO Level of Consciousness: Awake, Alert, Appropriate Motor/Sensory: No Motor Deficit - DERM Integumentary: Warm, Dry, No Rash Course - Re-evaluation Re-evalutation: 09/06/19 14:40 Patient with gestational sac noted on ultrasound, no pole. Patient's quantitative hCG less than 2000 at this time. Patient with incidental small subchorionic bleed noted. Patient without any abdominal tenderness or vaginal bleeding. Will encourage outpatient follow-up for repeat quantitative hCG in 48 hours and follow-up ultrasound with her primary doctor or [employer] for further evaluation of status. - Vital Signs Vital signs: Temp Pulse Resp BP Pulse Ox 97.4 F 78 18 148/61 H 100 09/06/19 13:12 09/06/19 13:12 09/06/19 13:12 09/06/19 13:12 09/06/19 13:12 - Laboratory Result Diagrams: 09/06/19 13:30 09/06/19 13:30 Laboratory results interpreted by me: 09/06/19 13:30 RDW 14.6 H 09/06/19 14:48 Labs- Entire Visit 09/06/19 09/06/19 09/06/19 13:30 13:30 13:30 WBC 8.1 RBC 5.09 Hgb 14.1 Hct 41.8 MCV 82 MCH 27.7 MCHC 33.8 RDW 14.6 H Plt Count 196 Lymph % (Auto) 23.0 [place] % (Auto) 6.3 Eos % (Auto) 0.4 Baso % (Auto) 0.2 Absolute Neuts (auto) 5.7 Absolute Lymphs (auto) 1.9 Absolute Monos (auto) 0.5 Absolute Eos (auto) 0.0 Absolute Basos (auto) 0.0 Seg Neutrophils % 70.1 Sodium 139.1 Potassium 3.9 Chloride 103 Carbon Dioxide 24 Anion Gap 12 BUN 7 Creatinine 0.71 Est GFR ( Amer) > 60 Est GFR (MDRD) Non-Af > 60 Glucose 123 H Calcium 10.3 H Total Bilirubin 0.4 Direct Bilirubin 0.2 Neonat Total Bilirubin Not Reportable Neonat Direct Bilirubin Not Reportable Neonat Indirect Bili Not Reportable AST 27 ALT 22 Alkaline Phosphatase 87 Total Protein 8.1 Albumin 4.7 Beta HCG, Quant 1995.70 H Total Beta HCG POSITIVE Urine Color Urine Appearance Urine pH Ur Specific [place] Urine Protein Urine Glucose (UA) Urine Ketones Urine Blood Urine Nitrite (Reflex) Urine Bilirubin Urine Urobilinogen Leukocyte Esterase Rfl Urine RBC (Auto) U Hyaline Cast (Auto) Urine Bacteria (Auto) Urine WBC (Reflex) Squamous Epi Cells Auto Urine Mucus (Auto) Urine Ascorbic Acid Blood Type O POSITIVE Rhogam Indicated RHOGAM NOT INDICATED 09/06/19 13:30 WBC RBC Hgb Hct MCV MCH MCHC RDW Plt Count Lymph % (Auto) [place] % (Auto) Eos % (Auto) Baso % (Auto) Absolute Neuts (auto) Absolute Lymphs (auto) Absolute Monos (auto) Absolute Eos (auto) Absolute Basos (auto) Seg Neutrophils % Sodium Potassium Chloride Carbon Dioxide Anion Gap BUN Creatinine Est GFR ( Amer) Est GFR (MDRD) Non-Af Glucose Calcium Total Bilirubin Direct Bilirubin Neonat Total Bilirubin Neonat Direct Bilirubin Neonat Indirect Bili AST ALT Alkaline Phosphatase Total Protein Albumin Beta HCG, Quant Total Beta HCG Urine Color STRAW Urine Appearance CLEAR Urine pH 7.0 Ur Specific [place] 1.004 Urine Protein NEGATIVE Urine Glucose (UA) NEGATIVE Urine Ketones NEGATIVE Urine Blood NEGATIVE Urine Nitrite (Reflex) NEGATIVE Urine Bilirubin NEGATIVE Urine Urobilinogen NEGATIVE Leukocyte Esterase Rfl NEGATIVE Urine RBC (Auto) 0 U Hyaline Cast (Auto) 3 Urine Bacteria (Auto) 3+ Urine WBC (Reflex) < 1 Squamous Epi Cells Auto 2 Urine Mucus (Auto) RARE Urine Ascorbic Acid NEGATIVE Blood Type Rhogam Indicated - Diagnostic Test Radiology reviewed: Reports reviewed Discharge - Discharge Clinical Impression: test positive, Vaginal spotting Condition: Stable Disposition: HOME, SELF-CARE Instructions: Ectopic Precaution ([facility]) Additional Instructions: Return immediately for any new or worsening symptoms: Pelvic pain, vaginal bleeding, lightheadedness, dizziness or any concerning new symptoms Followup with your primary care provider, call tomorrow to make a followup appointment Return in 48 hours to the lab for repeat hormone testing. You will need an additional ultrasound to further evaluate this . Forms: Follow-Up Laboratory Testing Referrals: [facility] [Provider Group] - Follow up in 3-5 days
[2019-09-06 14:11] LABS: ALBUMIN 4.7 g/dL (3.7-5.6); ALKALINE PHOSPHATASE 87 U/L (50-135); ANION GAP 12 (5-19); ASPARTATE AMINO TRANSFERASE 27 U/L (5-30); BILIRUBIN,DIRECT 0.2 mg/dL (0.0-0.4); BILIRUBIN,TOTAL 0.4 mg/dL (0.2-1.3); BLOOD UREA NITROGEN 7 mg/dL (7-20); CALCIUM 10.3 mg/dL (8.4-10.2); CARBON DIOXIDE 24 mmol/L (22-30); CHLORIDE 103 mmol/L (98-107); GLUCOSE 123 mg/dL (75-110); POTASSIUM 3.9 mmol/L (3.6-5.0); TOTAL PROTEIN 8.1 g/dL (6.3-8.2)
--- NOTE | 2019-09-06 14:35 | RADIOLOGY REPORT (SQ) ---
EXAM DESCRIPTION: U/S OB TRANSVAGINAL W/O DOP COMPLETED DATE/TIME: 09/06/2019 2:06 pm REASON FOR STUDY: approx 5-6wks, spotting COMPARISON: 05/06/2019 TECHNIQUE: Transvaginal static and realtime grayscale images acquired of the pelvis. Additional kofi cted spectral and color Doppler images recorded. All images stored on PACs. CLINICAL AGE: 5 weeks 1 day. bHCG: Pending. LIMITATIONS: None. FINDINGS: UTERUS: No masses. No anomalies. GESTATIONAL SAC: Normal shape. Probable subchorionic bleed. This measures 1.1 x 1.1 x 0.3 cm. YOLK SAC: No. POLE: None present. RIGHT ADNEXA: Normal ovary with normal vascular flow. There is a complex cyst measured at 2.4 x 2.2 x 1.9 cm. No adnexal free fluid. No adnexal masses. LEFT ADNEXA: Normal ovary with normal vascular flow. No adnexal free fluid. No adnexal masses. FREE FLUID: None. OTHER: No other significant finding. IMPRESSION: POSSIBLE EARLY INTRAUTERINE . BHCG LEVEL NOT AVAILABLE FOR CORRELATION WITH US FINDINGS. CONSIDER F/U BHCG AND/OR ULTRASOUND FOR VERIFICATION AND TO EXCLUDE ECTOPIC . SMALL SUBCHORIONIC BLEED MEASURING 1.1 X 1.1 X 0.3 CM. Trimester of : First trimester - 0 to 13 weeks. TECHNICAL DOCUMENTATION: JOB ID: [id number] [employer]- All Rights Reserved Reading location - IP/workstation name: [email or web address]
[2019-09-06 14:38] LABS: APPEARANCE,URINE CLEAR; BILIRUBIN,URINE NEGATIVE (NEGATIVE); COLOR,URINE STRAW; GLUCOSE, URINE NEGATIVE (NEGATIVE); KETONES,URINE NEGATIVE (NEGATIVE); PROTEIN,URINE NEGATIVE (NEGATIVE); URINE SPECIFIC GRAVITY 1.004; UROBILINOGEN,URINE NEGATIVE mg/dL (<2.0)
[2019-09-06 15:07] VITALS: BP 120/70
== END 2019-09-06 15:06 | disposition home or self-care (01) ==
LOC: ER 13:09
DX: O46.8X9 Other antepartum hemorrhage, unspecified trimester (principal); Z3A.00 Weeks of gestation of pregnancy not specified
CPT/HCPCS: 36415; 76817; 80053; 81001; 84702; 85025; 86900; 86901; 99284